=== PATIENT | male | born 1990 | race Caucasian/White ===

== ENCOUNTER 2016-11-27 10:40 | Inpatient (IN) | payer BC ==
[2016-11-27] MEDS ORDERED: Metoclopramide 10 MG/2 ML SDV IVPUSH ONE (11:24)
[2016-11-27] MEDS ORDERED: cefOXitin 2 GM in Premix Bag 1 BAG IV ONE (11:24)
[2016-11-27] MEDS ORDERED: HYDROmorphone 0.5 MG/0.5 ML Syringe IVPUSH ONE (11:24)
--- NOTE | 2016-11-27 11:27 | EDM.PDOC ---
ED HPI GI/ABDOMINAL - General Chief Complaint: Abdominal Pain Stated Complaint: R SIDE PAIN/ABD PAIN Time Seen by Provider: 11/27/16 11:08 Source of Information: Reports: Patient History Limitations: Reports: No limitations - History of Present Illness INITIAL COMMENTS - FREE TEXT/NARRATIVE: 26-year-old male attends the ED at the request of his provider Conrad Carmen. Patient reports that she's been having diffuse periumbilical and lower abdominal discomfort for the better part of 2 days. Associated loose stools one to 3 times per day since November 24. Gradually increasing pain localizing more to the right lower quadrant in the last 24 hours. No nausea or vomiting. He does to keep down fluids but he has no appetite for solids. States it "hurt [place] way [place]. He is aware that is difficult to stand fully erect. Hurts to cough. [place] chilled last evening. No noted fever. No previous abdominal surgery. Symptom Onset Date: 11/24/16 (About diffuse lower abdominal pain some loose stools Friday evening.) Symptom Onset Time: 19:00 Timing/Duration: Reports: Day(s):, Gradual onset Location: RLQ Quality: Reports: ache, fullness, throbbing Severity: moderate Improves with: Denies: defecating Worsens with: Reports: sitting up, other. Denies: defecating Context: Denies: sick contact ("Hurt [place] way here [place] beach.), bad/ questionable food, out of country travel, recent surgery, recent trauma, lifting , activity/exercise, other Associated Symptoms: Reports: diarrhea (Loose stools 1-3 semi-formed stools per day without blood since onset of illness.), fever/chills, loss of appetite (Had some chills last night. Note note identified fever for sure.), malaise. Denies : denies other symptoms, bloody stools, nausea/vomiting, other Treatments BROOMMAKER: Reports: Other (see below) - Related Data Allergies/ADRs: Allergies Allergy/AdvReac Type Severity Reaction Status Date / Time No Known Allergies Allergy Verified 11/27/16 10:56 Home Meds: Home Meds . [No Known Home Meds] 11/27/16 [History] Past Medical History - Past Health History Medical/Surgical History: Denies Medical/Surgical History Musculoskeletal History: Reports: Other (see below) (Closed fracture right wrist as a youngster requiring casting.) Social & Family History - Tobacco Use Smoking Status *Q: Never Smoker - Caffeine Use Caffeine Use: Reports: None - Recreational Drug Use Recreational Drug Use: No - Living Situation & Occupation Living situation: Reports: Occupation: employed ED ROS GENERAL - Review of Systems Review Of Systems: See Below Constitutional: Reports: no symptoms Respiratory: Reports: No Symptoms Endocrine: Reports: no symptoms GI/Abdominal: Reports: No symptoms : Reports: no symptoms Musculoskeletal: Reports: no symptoms Skin: Reports: no symptoms Neurological: Reports: No Symptoms Hematologic/Lymphatic: Reports: no symptoms Immunologic: Reports: no symptoms ED EXAM, GI/ABD - Physical Exam Exam: See Below Exam Limited By: No limitations General Appearance: alert, WD/WN, no apparent distress Eyes: bilateral: normal appearance (No jaundice) Ears: normal TMs Throat/Mouth: Normal inspection, Normal lips (Tongue is quite dry and coated.), Normal oropharynx, Other Head: atraumatic, normocephalic Neck: normal inspection, supple, non-tender, full range of motion. No: lymphadenopathy (L), lymphadenopathy (R) Respiratory/Chest: no respiratory distress, lungs clear, normal breath sounds, no accessory muscle use Cardiovascular: regular rate, rhythm, no edema (Resting tachycardia at 110 per minute), no gallop, no murmur, no rub, tachycardia GI/Abdominal: normal bowel sounds, soft, tenderness (Tenderness is localized to McBurney's point. He is very slight guarding in this area and no true rebound tenderness.), guarding, McBurney's sign. No: distention, psoas sign, obturator sign, Rovsing's sign (Negative off sign obturator sign and psoas sign.) (Male) Exam: No hernia (Mild right lower quadrant) Extremities: normal inspection, normal range of motion, non-tender, no pedal edema, normal capillary refill Neurological: alert, oriented, CN II-XII intact, normal cognition Psychiatric: normal affect (walks quite slowly.), normal mood Skin Exam: Warm, Dry, Intact, Normal color, No rash Course - Vital Signs Last Recorded V/S: Last Vital Signs Temp 37.1 C 11/27/16 17:40 Pulse 109 H 11/27/16 18:08 Resp 16 11/27/16 17:40 BP 134/74 11/27/16 18:08 Pulse Ox 94 L 11/27/16 18:08 - Orders/Labs/Meds Orders: Active Orders 24 hr Category Date Time Status Admission Status [Patient Status] [ADT] Routine ADT 11/27/16 13:47 Active Patient to Empty Bladder [RC] ASDIRECTED Care 11/27/16 13:56 Active Schedule Procedure [COMM] Stat Oth 11/27/16 14:14 Ordered Resuscitation Status Routine Resus Stat 11/27/16 13:56 Ordered Medication Orders Hydromorphone HCl (Dilaudid) 0.5 mg IVPUSH Q1H PRN PRN Reason: Pain (severe 7-10) Lactated Ringer's (Ringers, Lactated) 1,000 mls @ 125 mls/hr IV ASDIRECTED GABBY Cefoxitin Sodium 2 gm/ Premix 50 mls @ 100 mls/hr IV Q6H GABBY Ondansetron HCl (Zofran) 4 mg IVPUSH Q6H PRN PRN Reason: Nausea/Vomiting Oxycodone/Acetaminophen (Percocet 325-5 Mg) 2 tab PO Q4H PRN PRN Reason: Pain (moderate 4-6) Meds: Medications Generic Name Dose Route Start Last Admin Trade Name Freq PRN Reason Stop Dose Admin Hydromorphone HCl 0.5 mg 11/27/16 15:55 Dilaudid IVPUSH Q1H PRN Pain (severe 7-10) Lactated Ringer's 1,000 mls @ 125 mls/hr 11/27/16 16:00 Ringers, Lactated IV ASDIRECTED GABBY Cefoxitin Sodium 2 gm/ Premix 50 mls @ 100 mls/hr 11/27/16 18:00 IV Q6H GABBY Ondansetron HCl 4 mg 11/27/16 15:55 Zofran IVPUSH Q6H PRN Nausea/Vomiting Oxycodone/Acetaminophen 2 tab 11/27/16 15:55 Percocet 325-5 Mg PO Q4H PRN Pain (moderate 4-6) Discontinued Medications Generic Name Dose Route Start Last Admin Trade Name Freq PRN Reason Stop Dose Admin Bupivacaine HCl/Epinephrine Bitart Confirm 11/27/16 13:56 11/27/16 14:48 Marcaine 0.5%/Epinephrine 1:200,000 Administered 11/27/16 13:57 50 ml Dose Administration 50 ml .ROUTE .STK-MED ONE Diatrizoate Meglum/Diatrizoate Sod 120 ml 11/27/16 11:55 11/27/16 13:00 Gastrografin 37% PO 11/27/16 11:56 90 ml ONETIME ONE Administration Fentanyl Confirm 11/27/16 14:15 Sublimaze Administered 11/27/16 14:16 Dose 250 mcg .ROUTE .STK-MED ONE Fentanyl Confirm 11/27/16 15:18 Sublimaze Administered 11/27/16 15:19 Dose 250 mcg .ROUTE .STK-MED ONE Fentanyl 50 mcg 11/27/16 16:12 Sublimaze IVPUSH 11/27/16 18:00 Q5M PRN PAIN Hydromorphone HCl 0.5 mg 11/27/16 11:24 11/27/16 14:25 Dilaudid IVPUSH 11/27/16 11:25 Not Given ONETIME ONE Hydromorphone HCl 0.5 mg 11/27/16 16:12 11/27/16 17:00 Dilaudid IVPUSH 11/27/16 16:28 0.5 mg Q15M PRN Administration Pain Dextrose/Sodium Chloride 1,000 mls @ 999 mls/hr 11/27/16 11:30 11/27/16 11:41 Dextrose 5%-Normal Saline IV 999 mls/hr ASDIRECTED GABBY Administration Cefoxitin Sodium 2 gm/ Premix 50 mls @ 100 mls/hr 11/27/16 11:24 11/27/16 13: 00 IV 11/27/16 11:53 100 mls/hr ONETIME ONE Administration Metronidazole 500 mg/ Premix 100 mls @ 100 mls/hr 11/27/16 13:50 IV 11/27/16 14:49 ONETIME ONE Lidocaine HCl Confirm 11/27/16 14:15 Xylocaine-Mpf 1% Administered 11/27/16 14:16 Dose 4 mls @ as directed .ROUTE .STK-MED ONE Lactated Ringer's Confirm 11/27/16 15:22 Ringers, Lactated Administered 11/27/16 15:23 Dose 1,000 mls @ as directed .ROUTE .STK-MED ONE Lactated Ringer's Confirm 11/27/16 16:01 Ringers, Lactated Administered 11/27/16 16:02 Dose 1,000 mls @ as directed .ROUTE .STK-MED ONE Iopamidol 150 ml 11/27/16 11:55 11/27/16 13:00 Isovue-300 (61%) IVPUSH 11/27/16 11:56 125 ml ONETIME ONE Administration Lidocaine/Epinephrine Confirm 11/27/16 13:56 11/27/16 14:48 Xylocaine 1% With Epinephrine 1:100,000 Administered 11/27/16 13:57 20 ml Dose Administration 20 ml .ROUTE .STK-MED ONE Metoclopramide HCl 10 mg 11/27/16 11:24 11/27/16 14:25 Reglan IVPUSH 11/27/16 11:25 Not Given ONETIME ONE Midazolam HCl Confirm 11/27/16 14:14 Versed 1 Mg/Ml Administered 11/27/16 14:15 Dose 2 mg .ROUTE .STK-MED ONE Ondansetron HCl Confirm 11/27/16 14:14 Zofran Administered 11/27/16 14:15 Dose 4 mg .ROUTE .STK-MED ONE Propofol Confirm 11/27/16 14:14 Diprivan 20 Ml Administered 11/27/16 14:15 Dose 200 mg .ROUTE .STK-MED ONE Rocuronium [place] Confirm 11/27/16 14:14 Zemuron Administered 11/27/16 14:15 Dose 50 mg .ROUTE .STK-MED ONE Sodium Chloride 10 ml 11/27/16 11:55 11/27/16 13:00 Saline Flush FLUSH 10 ml ONETIME PRN Administration IV FLUSH - Radiology Interpretation Free Text/Narrative:: 26-year-old male presents the ED with loose stools and some mild periumbilical pain since November 24 Over the last 2 days he's had gradually increasing in the right lower quadrant of the abdomen. By history has mild peritonitis with every bump in the road hurting [place]. He is he'll be seen in the clinic by Conrad Carmen. Lab work ordered reveals a white count of 18.39 with a left shift of 78% neutrophils. No bands reported. Hemoglobin is 13.4 hematocrit 41.1 platelets normal at 205,000. Sodium 136 potassium slightly low at 3.4 anion gap is 12.4 BUN is 12 creatinine is 1.2. Glucose was 122. Bilirubin is mildly elevated at 1.4 AST is 15 ALT of 28 C-reactive protein is markedly elevated at 21.8. Urine showed 3+ protein and 1+ ketones. 2+ bilirubinemia. Leukocyte Estrace negative. Clinically he appears to have appendicitis. Plan IV D5 normal saline at open. Was given Dilaudid 0.5 mg IV and Reglan 10 mg IV for nausea and pain relief. Will receive oral contrast for CT of the abdomen and pelvis with oral and IV contrast in about an hour. - Re-Assessments/Exams Free Text/Narrative Re-Assessment/Exam: 11/27/16 13:41 CT scan of the abdomen is been completed. It does show marked periappendiceal infiltrate without the appendix being well seen within the infiltrate. This is highly suspicious for ruptured appendix. The remainder of the solid organs ,liver, pancreas and spleen and both kidneys and bladder appear normal. 11/27/16 13:42 case discussed with on-call surgeon Dr. Wu and he will attend the patient in the emergency room. I will add Flagyl 500 mg IV to his treatment plan as well as I strongly suspect the appendix has ruptured by the looks of the CT scan. Departure - Departure Time of Disposition: 14:30 Disposition: DC/Tfer to Critical Access 66 Condition: serious Clinical Impression: Appendicitis Qualifiers: Appendicitis type: acute appendicitis Acute appendicitis type: with localized peritonitis Qualified Code(s): K35.3 - Acute appendicitis with localized peritonitis - My Orders Last 24 Hours: My Active Orders 11/27/16 13:47 Admission Status [Patient Status] [ADT] Routine - Assessment/Plan Last 24 Hours: My Active Orders 11/27/16 13:47 Admission Status [Patient Status] [ADT] Routine
[2016-11-27] MEDS ORDERED: Dextrose 5%-0.9% NaCl 1,000 ML IV SCH (11:30)
[2016-11-27] MEDS ORDERED: Iopamidol 612 MG/ML 150 ML Bottle IVPUSH ONE (11:55)
[2016-11-27] MEDS ORDERED: Sodium Chloride 0.9% 10 ML Syringe FLUSH PRN (11:55)
[2016-11-27] MEDS ORDERED: Diatrizoate Meglumine/Diatrizoate Sodium 37% 120 ML Bottle PO ONE (11:55)
--- NOTE | 2016-11-27 13:27 | CT ---
CT abdomen and pelvis Technique: Multiple axial sections were obtained from above the dome of the diaphragm inferiorly through the pubic symphysis. Intravenous and oral contrast was utilized. Delayed images also were obtained through the bladder. Findings: Air-filled appendix is seen with significant surrounding inflammatory change. Findings are compatible with ruptured appendicitis. Nothing identified at this time to indicate abscess. Small amount of extraluminal air is noted. Visualized lung bases are clear. Liver shows no focal parenchymal abnormality. Spleen appears within normal limits. Incidental accessory splenic tissue is noted anterior to the spleen. Pancreas is within normal limits. Kidneys show contrast-enhancement without hydronephrosis or mass. Aorta shows no aneurysmal dilatation. Slightly prominent lymph nodes are noted within the right lower abdomen believed to be reactive from the patient's appendicitis. No pelvic mass or adenopathy is seen. Delayed images shows contrast within the distal ureters and within the bladder. Bone window settings were reviewed which appear within normal limits for the patient's age. Impression: 1. Findings compatible with ruptured appendicitis as described above. Small amount of extraluminal air is seen. Slightly prominent lymph nodes within the right lower abdomen felt to be reactive from the appendicitis. 2. Other incidental findings. Diagnostic code #5
[2016-11-27] MEDS ORDERED: metroNIDAZOLE/Normal Saline 500 MG in Premix Bag 1 BAG IV ONE (13:50)
[2016-11-27] MEDS ORDERED: Lidocaine 1% with EPINEPHrine 1:100,000 20 ML MDV ONE (13:56)
[2016-11-27] MEDS ORDERED: Bupivacaine 0.5%/EPINEPHrine 1:200,000 50 ML MDV ONE (13:56)
--- NOTE | 2016-11-27 14:03 | PCM.HP ---
H&P History of Present Illness - General Date of Service: 11/27/16 Admit Problem/Dx: Admission Diagnosis/Problem Admission Diagnosis/Problem Abdominal pain History Limitations: Reports: No limitations - History of Present Illness Initial Comments - Free Text/Narative: 26 yo old male was in his usual state of excellent health until Friday when he experienced gas pains. The gas, became tenderness in his epigastrium and periumbilical region. He experienced more pain over the next several days that wasn't improving and ultimately localized in his suprapubic region and right lower abdominal quadrant. His appetite has been suppressed. He had mild nausea. He was seen by the clinic provider, who ordered white count, which was elevated. A CT scan was performed by the ED staff this afternoon and had features consistent with acute appendicitis. I was asked see him in surgical consultation. Lower Abdomen Pain Score (Numeric/FACES): 7 - Related Data Allergies/Adverse Reactions: Allergies Allergy/AdvReac Type Severity Reaction Status Date / Time No Known Allergies Allergy Verified 11/27/16 10:56 Home Medications: Home Meds . [No Known Home Meds] 11/27/16 [History] Past Medical History - Past Health History Medical/Surgical History: Denies Medical/Surgical History Musculoskeletal History: Reports: Other (see below) (Closed fracture right wrist as a youngster requiring casting.) Social & Family History - Tobacco Use Smoking Status *Q: Never Smoker - Caffeine Use Caffeine Use: Reports: None - Recreational Drug Use Recreational Drug Use: No - Living Situation & Occupation Living situation: Reports: Occupation: employed H&P Review of Systems - Review of Systems: Review Of Systems: See Below Gastrointestinal: Reports: Abdominal pain, Anorexia Exam - Exam Exam: See Below - Vital Signs Vital Signs: Last Vital Signs Temp 37.5 C 11/27/16 10:52 Pulse 108 H 11/27/16 10:52 Resp 18 11/27/16 10:52 BP 146/90 H 11/27/16 10:52 Pulse Ox 93 L 11/27/16 10:52 Weight: 127.006 kg - Exam General: alert, oriented, cooperative HEENT: EOMI, Hearing intact Neck: supple Lungs: Clear to auscultation, Normal respiratory effort Cardiovascular: regular rate, regular rhythm, normal S1, normal S2 Abdomen: normal bowel sounds, soft, McBurney's sign (Male) Exam: Normal inspection Rectal (Males) Exam: Deferred Back Exam: full range of motion Skin: warm, intact Neuro Extensive - Mental Status: alert, oriented x3 Psychiatric: alert, normal affect, normal mood *Q Meaningful Use (ADM) - VTE *Q VTE Criteria *Q: - Stroke *Q Stroke Criteria *Q: - AMI *Q AMI Criteria *Q: - Problem List (1) Appendicitis SNOMED Code(s): 63736976 ICD Code: K37 - UNSPECIFIED APPENDICITIS Status: Acute Priority: High Current Visit: Yes Qualifiers: Appendicitis type: acute appendicitis Acute appendicitis type: with localized peritonitis Qualified Code(s): K35.3 - Acute appendicitis with localized peritonitis Problem List Initiated/Reviewed/Updated: Yes Orders Last 24hrs: Active Orders 24 hr Category Date Time Status Admission Status [Patient Status] [ADT] Routine ADT 11/27/16 13:47 Active Communication Order [RC] STAT Care 11/27/16 13:56 Ordered Patient to Empty Bladder [RC] ASDIRECTED Care 11/27/16 13:56 Ordered Verify Patient Consent Obtain [RC] ASDIRECTED Care 11/27/16 13:56 Ordered Nothing Per Oral Diet [DIET] Diet 11/27/16 Dinner Ordered Dextrose 5%-0.9% NaCl [Dextrose 5%-Normal Saline] 1,000 Med 11/27/16 11:30 Active ml IV ASDIRECTED Sodium Chloride 0.9% [Saline Flush] Med 11/27/16 11:55 Active 10 ml FLUSH ONETIME PRN metroNIDAZOLE/Normal Saline [Flagyl 500 MG in NS 100 ML Med 11/27/16 13:50 Active ] 500 mg Premix Bag 1 bag IV ONETIME Resuscitation Status Routine Resus Stat 11/27/16 13:56 Ordered Medication Orders Dextrose/Sodium Chloride (Dextrose 5%-Normal Saline) 1,000 mls @ 999 mls/hr IV ASDIRECTED GABBY Last Admin: 11/27/16 11:41 Dose: 999 mls/hr Metronidazole 500 mg/ Premix 100 mls @ 100 mls/hr IV ONETIME ONE Stop: 11/27/16 14:49 Sodium Chloride (Saline Flush) 10 ml FLUSH ONETIME PRN PRN Reason: IV FLUSH Last Admin: 11/27/16 13:00 Dose: 10 ml Assessment/Plan Comment:: imp: Acute appendicitis plan: Laparoscopic, possible open appendectomy. The benefits, risks of the procedure were explained to the patient as well as the alternatives. He wants to proceed as soon as possible.
[2016-11-27] MEDS ORDERED: Rocuronium 50 MG/5 ML Vial ONE (14:14)
[2016-11-27] MEDS ORDERED: Ondansetron 4 MG/2 ML SDV ONE (14:14)
[2016-11-27] MEDS ORDERED: Midazolam 1 MG/ML 2 ML SDV ONE (14:14)
[2016-11-27] MEDS ORDERED: Propofol 200 MG/20 ML SDV ONE (14:14)
[2016-11-27] MEDS ORDERED: fentaNYL 250 MCG/5 ML SDV ONE ×2 (14:15→15:18)
[2016-11-27] MEDS ORDERED: Lidocaine 1% 4 ML ONE (14:15)
--- NOTE | 2016-11-27 15:02 | PCM.PREANE ---
Preanesthetic Assessment - Anesthesia/Transfusion/Family Hx Anesthesia History: Prior Anesthesia Without Reaction Family History of Anesthesia Reaction: No - Review of Systems General: Fatigue, Malaise Pulmonary: No Symptoms Cardiovascular: No Symptoms Gastrointestinal: Abdominal pain, Diarrhea Neurological: No Symptoms Other: Reports: None - Physical Assessment NPO Status Date: 11/27/16 NPO Status Time: 12:30 Pulse: 108 O2 Sat by Pulse Oximetry: 98 Respiratory Rate: 16 Blood Pressure: 146/90 Temperature: 37.5 C Vital Signs: Last Vital Signs Temp 37.5 C 11/27/16 10:52 Pulse 78 11/27/16 14:37 Resp 16 11/27/16 14:37 BP 128/82 11/27/16 14:37 Pulse Ox 98 11/27/16 14:37 Height: 1.93 m Weight: 127.006 kg ASA Class: 1E Mental Status: Alert & Oriented x3 Airway Class: Mallampati = 1 Dentition: Reports: Normal Dentition Thyro-Mental Finger Breadths: 3 Mouth Opening Finger Breadths: 3 ROM/Head Extension: Full Lungs: Clear to auscultation, Normal respiratory effort Cardiovascular: Regular Rate, Regular Rhythm, No Murmurs - Allergies Allergies/Adverse Reactions: Allergies Allergy/AdvReac Type Severity Reaction Status Date / Time No Known Allergies Allergy Verified 11/27/16 10:56 - Anesthesia Plan Pre-Op Medication Ordered: None - Acknowledgements Anesthesia Type Planned: General Anesthesia Pt an Appropriate Candidate for the Planned Anesthesia: Yes Alternatives and Risks of Anesthesia Discussed w Pt/Guardian: Yes Pt/Guardian Understands and Agrees with Anesthesia Plan: Yes PreAnesthesia Questionnaire - Past Health History Medical/Surgical History: Denies Medical/Surgical History Musculoskeletal History: Reports: Other (see below) (Closed fracture right wrist as a youngster requiring casting.) - SUBSTANCE USE Smoking Status *Q: Never Smoker Tobacco Use Within Last Twelve Months: No Other Tobacco Use Within Last Twelve Months: 0 Second Hand Smoke Exposure: No Days Per Week of Alcohol Use: 0 Number of Drinks Per Day: 0 Total Drinks Per Week: 0 Recreational Drug Use History: No - HOME MEDS Home Medications: Home Meds . [No Known Home Meds] 11/27/16 [History] - CURRENT (IN HOUSE) MEDS Current Meds: Current Medications Dextrose/Sodium Chloride (Dextrose 5%-Normal Saline) 1,000 mls @ 999 mls/hr IV ASDIRECTED [facility] Last Admin: 11/27/16 11:41 Dose: 999 mls/hr Sodium Chloride (Saline Flush) 10 ml FLUSH ONETIME PRN PRN Reason: IV FLUSH Last Admin: 11/27/16 13:00 Dose: 10 ml Discontinued Medications Bupivacaine HCl/Epinephrine Bitart (Marcaine 0.5%/Epinephrine 1:200,000) Confirm Administered Dose 50 ml .ROUTE .STK-MED ONE Stop: 11/27/16 13:57 Diatrizoate Meglum/Diatrizoate Sod (Gastrografin 37%) 120 ml PO ONETIME ONE Stop: 11/27/16 11:56 Last Admin: 11/27/16 13:00 Dose: 90 ml Fentanyl (Sublimaze) Confirm Administered Dose 250 mcg .ROUTE .STK-MED ONE Stop: 11/27/16 14:16 Hydromorphone HCl (Dilaudid) 0.5 mg IVPUSH ONETIME ONE Stop: 11/27/16 11:25 Last Admin: 11/27/16 14:25 Dose: Not Given Cefoxitin Sodium 2 gm/ Premix 50 mls @ 100 mls/hr IV ONETIME ONE Stop: 11/27/16 11:53 Last Admin: 11/27/16 13:00 Dose: 100 mls/hr Metronidazole 500 mg/ Premix 100 mls @ 100 mls/hr IV ONETIME ONE Stop: 11/27/16 14:49 Lidocaine HCl (Xylocaine-Mpf 1%) Confirm Administered Dose 4 mls @ as directed .ROUTE .STK-MED ONE Stop: 11/27/16 14:16 Iopamidol (Isovue-300 (61%)) 150 ml IVPUSH ONETIME ONE Stop: 11/27/16 11:56 Last Admin: 11/27/16 13:00 Dose: 125 ml Lidocaine/Epinephrine (Xylocaine 1% With Epinephrine 1:100,000) Confirm Administered Dose 20 ml .ROUTE .STK-MED ONE Stop: 11/27/16 13:57 Metoclopramide HCl (Reglan) 10 mg IVPUSH ONETIME ONE Stop: 11/27/16 11:25 Last Admin: 11/27/16 14:25 Dose: Not Given Midazolam HCl (Versed 1 Mg/Ml) Confirm Administered Dose 2 mg .ROUTE .STK-MED ONE Stop: 11/27/16 14:15 Ondansetron HCl (Zofran) Confirm Administered Dose 4 mg .ROUTE .STK-MED ONE Stop: 11/27/16 14:15 Propofol (Diprivan 20 Ml) Confirm Administered Dose 200 mg .ROUTE .STK-MED ONE Stop: 11/27/16 14:15 Rocuronium [place] (Zemuron) Confirm Administered Dose 50 mg .ROUTE .STK-MED ONE Stop: 11/27/16 14:15 Preanesthetic Assessment - REVIEW OF SYSTEMS Constitutional: Reports: no symptoms DIRECTOR OF INSTRUCTION: Reports: no symptoms Respiratory: Reports: no symptoms Cardiovascular: Reports: no symptoms Other: Reports: None - PHYSICAL ASSESSMENT O2 Sat by Pulse Oximetry: 98 RR: 16 Vital Signs: Last Vital Signs Temp 37.5 C 11/27/16 10:52 Pulse 78 11/27/16 14:37 Resp 16 11/27/16 14:37 BP 128/82 11/27/16 14:37 Pulse Ox 98 11/27/16 14:37 Height: 1.93 m Weight: 127.006 kg NPO Status Date: 11/27/16 NPO Status Time: 12:30 - ALLERGIES Allergies/Adverse Reactions: Allergies Allergy/AdvReac Type Severity Reaction Status Date / Time No Known Allergies Allergy Verified 11/27/16 10:56
[2016-11-27] MEDS ORDERED: Lactated Ringers 1,000 ML ONE ×2 (15:22→16:01)
[2016-11-27] MEDS ORDERED: HYDROmorphone 0.5 MG/0.5 ML Syringe IVPUSH PRN ×2 (15:55→16:12)
[2016-11-27] MEDS ORDERED: Ondansetron 4 MG/2 ML SDV IVPUSH PRN (15:55)
--- NOTE | 2016-11-27 16:00 | PCM.OPNOTE ---
- General Post-Op/Procedure Note Date of Surgery/Procedure: 11/27/16 Operative Procedure(s): laparoscopic appendectomy Findings: gangrenous appendix with a fecalith at the base, and local fecal spillag; concomitant local peritonitis, with a dense inflammatory reaction from the surrounding tissues Pre Op Diagnosis: acute perforated appendicitis Post-Op Diagnosis: acute gangrenous perforation with focal fecal peritonitis Anesthesia Technique: General ET tube, Local Primary Surgeon: Andre Wu Pathology: appendix EBL in mLs: 5 Complications: None Condition: Good Free Text/Narrative:: After adequate general endotracheal tube anesthesia was obtained the patient was positioned in supine fashion for the procedure. His abdomen was clipper prepped, then DuraPrepped and draped sterilely for a laparoscopic appendectomy. A supraumbilical incision was made with a 15 blade. After local analgesia was given. The incision was deepened to the midline fascia, which was opened sharply. A 12 mm camera port was inserted under direct vision, followed by CO2 pneumoperitoneum. A 5 mm working port was placed in the suprapubic region and one on left lower quadrant. Exploration revealed dense inflammatory adherence of the omentum, sigmoid colonic fat, to the appendix wall and sealed off what was to be a local fecal perforation. I then used the sucker dissection to tease away the surrounding structures away from the appendix, which was fully gangrenous throughout its length. A fecalith fell from the necrotic portion of the base spilling 1 CC of liquid feces and mucous. This was quickly controlled. There was no deacon pus in the region. I mobilized the cecum, along the white line. I was then able to identify the base of the appendix. A window was made with the scissors in the mesoappendix and then I fired the linear stapler across the base and 2 loads across the appendiceal mesentery. The specimen was placed in a bag along with a fecalith and removed through the umbilicus. Iirrigated out the right lower quadrant with 2 L of saline. He abdomen was decannulated under direct vision, and I closed the umbilical site with an O vicryl. The subcutaneous tissues and skin were closed with Vicryl as well. Steri -Strips and gauze used for the dressing. There were no procedural complications
[2016-11-27] MEDS ORDERED: fentaNYL 100 MCG/2 ML SDV IVPUSH PRN (16:12)
--- NOTE | 2016-11-27 16:14 | PCM.POSTAN ---
POST ANESTHESIA ASSESSMENT - MENTAL STATUS Mental Status: somnolent - VITAL SIGNS Pulse Rate: 107 SaO2: 100 Resp Rate: 14 Blood Pressure: 123/80 Temperature: 99.9 C - RESPIRATORY Respiratory Status: respiratory rate WNL, airway patent, O2 saturation stable, supplemental oxygen - CARDIOVASCULAR CV Status: pulse rate WNL, blood pressure stable - GASTROINTESTINAL GI Status: no symptoms - PAIN Pain Score: 0 - POST OP HYDRATION Hydration Status: adequate & stable - OBSERVATIONS Free Text/Narrative:: no anesthesia complications noted
[2016-11-27] MEDS: cefOXitin 2 GM in Premix Bag 1 BAG IV SCH (18:22)
[2016-11-27] MEDS: Acetaminophen/oxyCODONE 325-5 MG Tab PO PRN (20:05)
[2016-11-27] MEDS: Lactated Ringers 1,000 ML IV SCH (20:06)
[2016-11-28] MEDS: cefOXitin 2 GM in Premix Bag 1 BAG IV SCH ×5 (00:22→23:40)
[2016-11-28] MEDS: Lactated Ringers 1,000 ML IV SCH ×3 (04:12→20:07)
[2016-11-28] MEDS: Acetaminophen/oxyCODONE 325-5 MG Tab PO PRN ×2 (06:07→15:37)
--- NOTE | 2016-11-28 07:41 | PCM.SURGPN ---
- General Info Date of Service: 11/28/16 POD#: 1 Functional Status: Reports: pain controlled (but still has lower abdominal and left lower quadrant abdominal pain), tolerating diet (began to take in liquids this morning without difficulty), ambulating, urinating - Review of Systems Gastrointestinal: Reports: Abdominal pain, Decreased appetite - Patient Data Vitals - most recent: Last Vital Signs Temp 36.5 C 11/28/16 03:50 Pulse 118 H 11/28/16 03:50 Resp 20 11/28/16 03:50 BP 124/65 11/28/16 03:50 Pulse Ox 90 L 11/28/16 03:50 Weight - most recent: 125.6 kg I&O - last 24 hours: Intake & Output 11/27/16 11/28/16 11/28/16 22:59 06:59 14:59 Intake Total 500 1979 Output Total 600 Balance 500 1379 Med Orders - Current: Current Medications Hydromorphone HCl (Dilaudid) 0.5 mg IVPUSH Q1H PRN PRN Reason: Pain (severe 7-10) Last Admin: 11/27/16 18:24 Dose: 0.5 mg Lactated Ringer's (Ringers, Lactated) 1,000 mls @ 125 mls/hr IV ASDIRECTED [facility] Last Admin: 11/28/16 04:12 Dose: 125 mls/hr Cefoxitin Sodium 2 gm/ Premix 50 mls @ 100 mls/hr IV Q6H [facility] Last Admin: 11/28/16 05:56 Dose: 100 mls/hr Ondansetron HCl (Zofran) 4 mg IVPUSH Q6H PRN PRN Reason: Nausea/Vomiting Oxycodone/Acetaminophen (Percocet 325-5 Mg) 2 tab PO Q4H PRN PRN Reason: Pain (moderate 4-6) Last Admin: 11/28/16 06:07 Dose: 2 tab Discontinued Medications Bupivacaine HCl/Epinephrine Bitart (Marcaine 0.5%/Epinephrine 1:200,000) Confirm Administered Dose 50 ml .ROUTE .STK-MED ONE Stop: 11/27/16 13:57 Last Admin: 11/27/16 14:48 Dose: 10 ml Diatrizoate Meglum/Diatrizoate Sod (Gastrografin 37%) 120 ml PO ONETIME ONE Stop: 11/27/16 11:56 Last Admin: 11/27/16 13:00 Dose: 90 ml Fentanyl (Sublimaze) Confirm Administered Dose 250 mcg .ROUTE .STK-MED ONE Stop: 11/27/16 14:16 Fentanyl (Sublimaze) Confirm Administered Dose 250 mcg .ROUTE .STK-MED ONE Stop: 11/27/16 15:19 Fentanyl (Sublimaze) 50 mcg IVPUSH Q5M PRN PRN Reason: PAIN Stop: 11/27/16 18:00 Hydromorphone HCl (Dilaudid) 0.5 mg IVPUSH ONETIME ONE Stop: 11/27/16 11:25 Last Admin: 11/27/16 14:25 Dose: Not Given Hydromorphone HCl (Dilaudid) 0.5 mg IVPUSH Q15M PRN PRN Reason: Pain Stop: 11/27/16 16:28 Last Admin: 11/27/16 17:00 Dose: 0.5 mg Dextrose/Sodium Chloride (Dextrose 5%-Normal Saline) 1,000 mls @ 999 mls/hr IV ASDIRECTED [facility] Last Admin: 11/27/16 11:41 Dose: 999 mls/hr Cefoxitin Sodium 2 gm/ Premix 50 mls @ 100 mls/hr IV ONETIME ONE Stop: 11/27/16 11:53 Last Admin: 11/27/16 13:00 Dose: 100 mls/hr Metronidazole 500 mg/ Premix 100 mls @ 100 mls/hr IV ONETIME ONE Stop: 11/27/16 14:49 Last Admin: 11/27/16 19:11 Dose: Not Given Lidocaine HCl (Xylocaine-Mpf 1%) Confirm Administered Dose 4 mls @ as directed .ROUTE .STK-MED ONE Stop: 11/27/16 14:16 Lactated Ringer's (Ringers, Lactated) Confirm Administered Dose 1,000 mls @ as directed .ROUTE .STK-MED ONE Stop: 11/27/16 15:23 Lactated Ringer's (Ringers, Lactated) Confirm Administered Dose 1,000 mls @ as directed .ROUTE .STK-MED ONE Stop: 11/27/16 16:02 Iopamidol (Isovue-300 (61%)) 150 ml IVPUSH ONETIME ONE Stop: 11/27/16 11:56 Last Admin: 11/27/16 13:00 Dose: 125 ml Lidocaine/Epinephrine (Xylocaine 1% With Epinephrine 1:100,000) Confirm Administered Dose 20 ml .ROUTE .STK-MED ONE Stop: 11/27/16 13:57 Last Admin: 11/27/16 14:48 Dose: 10 ml Metoclopramide HCl (Reglan) 10 mg IVPUSH ONETIME ONE Stop: 11/27/16 11:25 Last Admin: 11/27/16 14:25 Dose: Not Given Midazolam HCl (Versed 1 Mg/Ml) Confirm Administered Dose 2 mg .ROUTE .STK-MED ONE Stop: 11/27/16 14:15 Ondansetron HCl (Zofran) Confirm Administered Dose 4 mg .ROUTE .STK-MED ONE Stop: 11/27/16 14:15 Propofol (Diprivan 20 Ml) Confirm Administered Dose 200 mg .ROUTE .STK-MED ONE Stop: 11/27/16 14:15 Rocuronium [place] (Zemuron) Confirm Administered Dose 50 mg .ROUTE .STK-MED ONE Stop: 11/27/16 14:15 Sodium Chloride (Saline Flush) 10 ml FLUSH ONETIME PRN PRN Reason: IV FLUSH Last Admin: 11/27/16 13:00 Dose: 10 ml - Exam Wound/Incisions: dressing dry and intact Abdomen: distension (mild to moderate) - Problem List & Annotations (1) Appendicitis SNOMED Code(s): 94129254 Code(s): K37 - UNSPECIFIED APPENDICITIS Status: Acute Priority: High Current Visit: Yes Qualifiers: Appendicitis type: acute appendicitis Acute appendicitis type: with localized peritonitis Qualified Code(s): K35.3 - Acute appendicitis with localized peritonitis - Problem List Review Problem List Initiated/Reviewed/Updated: Yes - My Orders Last 24 Hours: Active Orders 24 hr Category Date Time Status Antiembolic Devices [RC] QSHIFT Care 11/27/16 23:23 Active Notify Provider [RC] ASDIRECTED Care 11/27/16 16:12 Active Full Liquid Diet [DIET] Diet 11/28/16 Lunch Ordered Sequential Compression Device [OM.PC] Routine Oth 11/27/16 23:23 Ordered Medication Orders Hydromorphone HCl (Dilaudid) 0.5 mg IVPUSH Q1H PRN PRN Reason: Pain (severe 7-10) Last Admin: 11/27/16 18:24 Dose: 0.5 mg Lactated Ringer's (Ringers, Lactated) 1,000 mls @ 125 mls/hr IV ASDIRECTED [facility] Last Admin: 11/28/16 04:12 Dose: 125 mls/hr Infusion: 11/28/16 04:06 Dose: 125 mls/hr Admin: 11/27/16 20:06 Dose: 125 mls/hr Cefoxitin Sodium 2 gm/ Premix 50 mls @ 100 mls/hr IV Q6H [facility] Last Admin: 11/28/16 05:56 Dose: 100 mls/hr Infusion: 11/28/16 00:52 Dose: 100 mls/hr Admin: 11/28/16 00:22 Dose: 100 mls/hr Infusion: 11/27/16 18:52 Dose: 100 mls/hr Admin: 11/27/16 18:22 Dose: 100 mls/hr Ondansetron HCl (Zofran) 4 mg IVPUSH Q6H PRN PRN Reason: Nausea/Vomiting Oxycodone/Acetaminophen (Percocet 325-5 Mg) 2 tab PO Q4H PRN PRN Reason: Pain (moderate 4-6) Last Admin: 11/28/16 06:07 Dose: 2 tab Admin: 11/27/16 20:05 Dose: 2 tab imp/plan: Expected postoperative clinical status at this point, given the severity of his infection. I will advance his diet to a full liquid diet. I will have physical therapy come by and assist him with ambulation.
[2016-11-29] MEDS: Lactated Ringers 1,000 ML IV SCH ×2 (04:08→12:01)
[2016-11-29] MEDS: cefOXitin 2 GM in Premix Bag 1 BAG IV SCH ×3 (05:58→17:08)
--- NOTE | 2016-11-29 07:35 | PCM.SURGPN ---
- General Info Date of Service: 11/29/16 POD#: 2 Functional Status: Reports: pain controlled, tolerating diet, ambulating, urinating - Review of Systems Gastrointestinal: Reports: Diarrhea - Patient Data Vitals - most recent: Last Vital Signs Temp 36.6 C 11/29/16 04:07 Pulse 94 11/29/16 04:07 Resp 18 11/29/16 04:07 BP 126/74 11/29/16 04:07 Pulse Ox 96 11/29/16 04:07 Weight - most recent: 128.185 kg I&O - last 24 hours: Intake & Output 11/28/16 11/29/16 11/29/16 22:59 06:59 14:59 Intake Total 3320 2817 Output Total 600 Balance 2720 2817 Lab Results last 24 hrs: Laboratory Results - last 24 hr 11/28/16 Range/Units 06:50 WBC 15.73 H (4.23-9.07) K/mm3 RBC 7.25 H (4.63-6.08) M/mm3 Hgb 13.2 L (13.7-17.5) gm/L Hct 40.3 (40.1-51.0) % MCV 55.6 L (79.0-92.2) fl MCH 18.2 L (25.7-32.2) pg MCHC 32.8 (32.2-35.5) g/dl RDW Std Deviation 33.9 L (35.1-43.9) fL Plt Count 313 (163-337) K/mm3 MPV 10.7 (9.4-12.3) fl Neut % (Auto) 79.3 H (34.0-67.9) % Lymph % (Auto) 7.1 L (21.8-53.1) % Sharp % (Auto) 13.2 H (5.3-12.2) % Eos % (Auto) 0 L (0.8-7.0) Baso % (Auto) 0.1 (0.1-1.2) % Neut # (Auto) 12.48 H (1.78-5.38) K/mm3 Lymph # (Auto) 1.12 L (1.32-3.57) K/mm3 Sharp # (Auto) 2.08 H (0.30-0.82) K/mm3 Eos # (Auto) 0.00 L (0.04-0.54) K/mm3 Baso # (Auto) 0.01 (0.01-0.08) K/mm3 Manual Slide Review Abnormal smear Med Orders - Current: Current Medications Hydromorphone HCl (Dilaudid) 0.5 mg IVPUSH Q1H PRN PRN Reason: Pain (severe 7-10) Last Admin: 11/27/16 18:24 Dose: 0.5 mg Lactated Ringer's (Ringers, Lactated) 1,000 mls @ 125 mls/hr IV ASDIRECTED [facility] Last Admin: 11/29/16 04:08 Dose: 125 mls/hr Cefoxitin Sodium 2 gm/ Premix 50 mls @ 100 mls/hr IV Q6H [facility] Last Admin: 11/29/16 05:58 Dose: 100 mls/hr Ondansetron HCl (Zofran) 4 mg IVPUSH Q6H PRN PRN Reason: Nausea/Vomiting Oxycodone/Acetaminophen (Percocet 325-5 Mg) 2 tab PO Q4H PRN PRN Reason: Pain (moderate 4-6) Last Admin: 11/28/16 15:37 Dose: 2 tab Discontinued Medications Bupivacaine HCl/Epinephrine Bitart (Marcaine 0.5%/Epinephrine 1:200,000) Confirm Administered Dose 50 ml .ROUTE .STK-MED ONE Stop: 11/27/16 13:57 Last Admin: 11/27/16 14:48 Dose: 10 ml Diatrizoate Meglum/Diatrizoate Sod (Gastrografin 37%) 120 ml PO ONETIME ONE Stop: 11/27/16 11:56 Last Admin: 11/27/16 13:00 Dose: 90 ml Fentanyl (Sublimaze) Confirm Administered Dose 250 mcg .ROUTE .STK-MED ONE Stop: 11/27/16 14:16 Fentanyl (Sublimaze) Confirm Administered Dose 250 mcg .ROUTE .STK-MED ONE Stop: 11/27/16 15:19 Fentanyl (Sublimaze) 50 mcg IVPUSH Q5M PRN PRN Reason: PAIN Stop: 11/27/16 18:00 Hydromorphone HCl (Dilaudid) 0.5 mg IVPUSH ONETIME ONE Stop: 11/27/16 11:25 Last Admin: 11/27/16 14:25 Dose: Not Given Hydromorphone HCl (Dilaudid) 0.5 mg IVPUSH Q15M PRN PRN Reason: Pain Stop: 11/27/16 16:28 Last Admin: 11/27/16 17:00 Dose: 0.5 mg Dextrose/Sodium Chloride (Dextrose 5%-Normal Saline) 1,000 mls @ 999 mls/hr IV ASDIRECTED [facility] Last Admin: 11/27/16 11:41 Dose: 999 mls/hr Cefoxitin Sodium 2 gm/ Premix 50 mls @ 100 mls/hr IV ONETIME ONE Stop: 11/27/16 11:53 Last Admin: 11/27/16 13:00 Dose: 100 mls/hr Metronidazole 500 mg/ Premix 100 mls @ 100 mls/hr IV ONETIME ONE Stop: 11/27/16 14:49 Last Admin: 11/27/16 19:11 Dose: Not Given Lidocaine HCl (Xylocaine-Mpf 1%) Confirm Administered Dose 4 mls @ as directed .ROUTE .STK-MED ONE Stop: 11/27/16 14:16 Lactated Ringer's (Ringers, Lactated) Confirm Administered Dose 1,000 mls @ as directed .ROUTE .STK-MED ONE Stop: 11/27/16 15:23 Lactated Ringer's (Ringers, Lactated) Confirm Administered Dose 1,000 mls @ as directed .ROUTE .STK-MED ONE Stop: 11/27/16 16:02 Iopamidol (Isovue-300 (61%)) 150 ml IVPUSH ONETIME ONE Stop: 11/27/16 11:56 Last Admin: 11/27/16 13:00 Dose: 125 ml Lidocaine/Epinephrine (Xylocaine 1% With Epinephrine 1:100,000) Confirm Administered Dose 20 ml .ROUTE .STK-MED ONE Stop: 11/27/16 13:57 Last Admin: 11/27/16 14:48 Dose: 10 ml Metoclopramide HCl (Reglan) 10 mg IVPUSH ONETIME ONE Stop: 11/27/16 11:25 Last Admin: 11/27/16 14:25 Dose: Not Given Midazolam HCl (Versed 1 Mg/Ml) Confirm Administered Dose 2 mg .ROUTE .STK-MED ONE Stop: 11/27/16 14:15 Ondansetron HCl (Zofran) Confirm Administered Dose 4 mg .ROUTE .STK-MED ONE Stop: 11/27/16 14:15 Propofol (Diprivan 20 Ml) Confirm Administered Dose 200 mg .ROUTE .STK-MED ONE Stop: 11/27/16 14:15 Rocuronium [place] (Zemuron) Confirm Administered Dose 50 mg .ROUTE .STK-MED ONE Stop: 11/27/16 14:15 Sodium Chloride (Saline Flush) 10 ml FLUSH ONETIME PRN PRN Reason: IV FLUSH Last Admin: 11/27/16 13:00 Dose: 10 ml - Exam Wound/Incisions: dressing dry and intact Abdomen: no tenderness, distension - Problem List & Annotations (1) Appendicitis SNOMED Code(s): 63069268 Code(s): K37 - UNSPECIFIED APPENDICITIS Status: Acute Priority: High Current Visit: Yes Qualifiers: Appendicitis type: acute appendicitis Acute appendicitis type: with localized peritonitis Qualified Code(s): K35.3 - Acute appendicitis with localized peritonitis - Problem List Review Problem List Initiated/Reviewed/Updated: Yes - My Orders Last 24 Hours: Active Orders 24 hr Category Date Time Status Communication Order [RC] ROUTINE Care 11/29/16 07:33 Ordered May Shower [RC] ASDIRECTED Care 11/29/16 07:32 Ordered Consult to Physical Therapy [PT Evaluation and Cons 11/28/16 07:41 Active Treatment] [CONS] Routine Full Liquid Diet [DIET] Diet 11/28/16 Lunch Active Regular Diet [DIET] Diet 11/29/16 Lunch Ordered Peripheral IV Discontinue [OM.PC] Routine Oth 11/29/16 07:32 Ordered Medication Orders Hydromorphone HCl (Dilaudid) 0.5 mg IVPUSH Q1H PRN PRN Reason: Pain (severe 7-10) Last Admin: 11/27/16 18:24 Dose: 0.5 mg Lactated Ringer's (Ringers, Lactated) 1,000 mls @ 125 mls/hr IV ASDIRECTED [facility] Last Admin: 11/29/16 04:08 Dose: 125 mls/hr Infusion: 11/29/16 04:07 Dose: 125 mls/hr Admin: 11/28/16 20:07 Dose: 125 mls/hr Infusion: 11/28/16 19:54 Dose: 125 mls/hr Admin: 11/28/16 11:54 Dose: 125 mls/hr Infusion: 11/28/16 11:54 Dose: 125 mls/hr Admin: 11/28/16 04:12 Dose: 125 mls/hr Infusion: 11/28/16 04:06 Dose: 125 mls/hr Admin: 11/27/16 20:06 Dose: 125 mls/hr Cefoxitin Sodium 2 gm/ Premix 50 mls @ 100 mls/hr IV Q6H [facility] Last Admin: 11/29/16 05:58 Dose: 100 mls/hr Infusion: 11/29/16 00:10 Dose: 100 mls/hr Admin: 11/28/16 23:40 Dose: 100 mls/hr Infusion: 11/28/16 17:48 Dose: 100 mls/hr Admin: 11/28/16 17:18 Dose: 100 mls/hr Infusion: 11/28/16 12:24 Dose: 100 mls/hr Admin: 11/28/16 11:54 Dose: 100 mls/hr Infusion: 11/28/16 06:26 Dose: 100 mls/hr Admin: 11/28/16 05:56 Dose: 100 mls/hr Infusion: 11/28/16 00:52 Dose: 100 mls/hr Admin: 11/28/16 00:22 Dose: 100 mls/hr Infusion: 11/27/16 18:52 Dose: 100 mls/hr Admin: 11/27/16 18:22 Dose: 100 mls/hr Ondansetron HCl (Zofran) 4 mg IVPUSH Q6H PRN PRN Reason: Nausea/Vomiting Oxycodone/Acetaminophen (Percocet 325-5 Mg) 2 tab PO Q4H PRN PRN Reason: Pain (moderate 4-6) Last Admin: 11/28/16 15:37 Dose: 2 tab Admin: 11/28/16 06:07 Dose: 2 tab Admin: 11/27/16 20:05 Dose: 2 tab - Assessment Assessment (Free Text/Narrative):: doing well - Plan Plan (Free Text/Narrative):: advance diet
[2016-11-29] MEDS ORDERED: Flu Vaccine 2016-17(36Mos+)/PF 60 MCG/0.5 ML Syringe IM ONE (08:17)
[2016-11-29] MEDS: Simethicone 80 MG Tab.Chew PO PRN (15:52)
[2016-11-29] MEDS: Acetaminophen/oxyCODONE 325-5 MG Tab PO PRN (20:04)
[2016-11-30] MEDS: cefOXitin 2 GM in Premix Bag 1 BAG IV SCH ×4 (00:52→18:32)
--- NOTE | 2016-11-30 08:17 | PCM.SURGPN ---
- General Info Functional Status: Reports: pain controlled, tolerating diet, ambulating, urinating - Review of Systems Gastrointestinal: Reports: Other (Occasional incisional discomfort) - Patient Data Vitals - most recent: Last Vital Signs Temp 37.2 C 11/30/16 00:54 Pulse 102 H 11/30/16 00:54 Resp 14 11/30/16 00:54 BP 126/60 11/30/16 00:54 Pulse Ox 98 11/30/16 00:54 Weight - most recent: 128.14 kg I&O - last 24 hours: Intake & Output 11/29/16 11/30/16 11/30/16 22:59 06:59 14:59 Intake Total 1892 900 Output Total 1400 1025 Balance 492 -125 Med Orders - Current: Current Medications Hydromorphone HCl (Dilaudid) 0.5 mg IVPUSH Q1H PRN PRN Reason: Pain (severe 7-10) Last Admin: 11/27/16 18:24 Dose: 0.5 mg Cefoxitin Sodium 2 gm/ Premix 50 mls @ 100 mls/hr IV Q6H [facility] Last Admin: 11/30/16 05:30 Dose: 100 mls/hr Ondansetron HCl (Zofran) 4 mg IVPUSH Q6H PRN PRN Reason: Nausea/Vomiting Oxycodone/Acetaminophen (Percocet 325-5 Mg) 2 tab PO Q4H PRN PRN Reason: Pain (moderate 4-6) Last Admin: 11/29/16 20:04 Dose: 2 tab Simethicone (Simethicone) 80 mg PO Q6H PRN PRN Reason: Gas Last Admin: 11/29/16 15:52 Dose: 80 mg Discontinued Medications Bupivacaine HCl/Epinephrine Bitart (Marcaine 0.5%/Epinephrine 1:200,000) Confirm Administered Dose 50 ml .ROUTE .STK-MED ONE Stop: 11/27/16 13:57 Last Admin: 11/27/16 14:48 Dose: 10 ml Diatrizoate Meglum/Diatrizoate Sod (Gastrografin 37%) 120 ml PO ONETIME ONE Stop: 11/27/16 11:56 Last Admin: 11/27/16 13:00 Dose: 90 ml Fentanyl (Sublimaze) Confirm Administered Dose 250 mcg .ROUTE .STK-MED ONE Stop: 11/27/16 14:16 Fentanyl (Sublimaze) Confirm Administered Dose 250 mcg .ROUTE .STK-MED ONE Stop: 11/27/16 15:19 Fentanyl (Sublimaze) 50 mcg IVPUSH Q5M PRN PRN Reason: PAIN Stop: 11/27/16 18:00 Hydromorphone HCl (Dilaudid) 0.5 mg IVPUSH ONETIME ONE Stop: 11/27/16 11:25 Last Admin: 11/27/16 14:25 Dose: Not Given Hydromorphone HCl (Dilaudid) 0.5 mg IVPUSH Q15M PRN PRN Reason: Pain Stop: 11/27/16 16:28 Last Admin: 11/27/16 17:00 Dose: 0.5 mg Dextrose/Sodium Chloride (Dextrose 5%-Normal Saline) 1,000 mls @ 999 mls/hr IV ASDIRECTED [facility] Last Admin: 11/27/16 11:41 Dose: 999 mls/hr Cefoxitin Sodium 2 gm/ Premix 50 mls @ 100 mls/hr IV ONETIME ONE Stop: 11/27/16 11:53 Last Admin: 11/27/16 13:00 Dose: 100 mls/hr Metronidazole 500 mg/ Premix 100 mls @ 100 mls/hr IV ONETIME ONE Stop: 11/27/16 14:49 Last Admin: 11/27/16 19:11 Dose: Not Given Lidocaine HCl (Xylocaine-Mpf 1%) Confirm Administered Dose 4 mls @ as directed .ROUTE .STK-MED ONE Stop: 11/27/16 14:16 Lactated Ringer's (Ringers, Lactated) Confirm Administered Dose 1,000 mls @ as directed .ROUTE .STK-MED ONE Stop: 11/27/16 15:23 Lactated Ringer's (Ringers, Lactated) Confirm Administered Dose 1,000 mls @ as directed .ROUTE .STK-MED ONE Stop: 11/27/16 16:02 Lactated Ringer's (Ringers, Lactated) 1,000 mls @ 125 mls/hr IV [facility]IRECTED [facility] Last Admin: 11/29/16 12:01 Dose: 125 mls/hr Influenza Virus Vaccine (Fluzone/Fluarix Vaccine) 60 mcg IM .ONCE ONE Stop: 11/29/16 08:18 Iopamidol (Isovue-300 (61%)) 150 ml IVPUSH ONETIME ONE Stop: 11/27/16 11:56 Last Admin: 11/27/16 13:00 Dose: 125 ml Lidocaine/Epinephrine (Xylocaine 1% With Epinephrine 1:100,000) Confirm Administered Dose 20 ml .ROUTE .STK-MED ONE Stop: 11/27/16 13:57 Last Admin: 11/27/16 14:48 Dose: 10 ml Metoclopramide HCl (Reglan) 10 mg IVPUSH ONETIME ONE Stop: 11/27/16 11:25 Last Admin: 11/27/16 14:25 Dose: Not Given Midazolam HCl (Versed 1 Mg/Ml) Confirm Administered Dose 2 mg .ROUTE .STK-MED ONE Stop: 11/27/16 14:15 Ondansetron HCl (Zofran) Confirm Administered Dose 4 mg .ROUTE .STK-MED ONE Stop: 11/27/16 14:15 Propofol (Diprivan 20 Ml) Confirm Administered Dose 200 mg .ROUTE .STK-MED ONE Stop: 11/27/16 14:15 Rocuronium [place] (Zemuron) Confirm Administered Dose 50 mg .ROUTE .STK-MED ONE Stop: 11/27/16 14:15 Sodium Chloride (Saline Flush) 10 ml FLUSH ONETIME PRN PRN Reason: IV FLUSH Last Admin: 11/27/16 13:00 Dose: 10 ml - Exam Wound/Incisions: dressing dry and intact - Problem List & Annotations (1) Appendicitis SNOMED Code(s): 97025102 Code(s): K37 - UNSPECIFIED APPENDICITIS Status: Acute Priority: High Current Visit: Yes Qualifiers: Appendicitis type: acute appendicitis Acute appendicitis type: with localized peritonitis Qualified Code(s): K35.3 - Acute appendicitis with localized peritonitis - Problem List Review Problem List Initiated/Reviewed/Updated: Yes - My Orders Last 24 Hours: Active Orders 24 hr Category Date Time Status Communication Order [RC] ROUTINE Care 11/29/16 07:33 Active May Shower [RC] ASDIRECTED Care 11/29/16 07:32 Active Regular Diet [DIET] Diet 11/29/16 Lunch Active Simethicone Med 11/29/16 15:37 Active 80 mg PO Q6H PRN Peripheral IV Discontinue [OM.PC] Routine Oth 11/29/16 07:32 Ordered Medication Orders Hydromorphone HCl (Dilaudid) 0.5 mg IVPUSH Q1H PRN PRN Reason: Pain (severe 7-10) Last Admin: 11/27/16 18:24 Dose: 0.5 mg Cefoxitin Sodium 2 gm/ Premix 50 mls @ 100 mls/hr IV Q6H [facility] Last Admin: 11/30/16 05:30 Dose: 100 mls/hr Infusion: 11/30/16 01:22 Dose: 100 mls/hr Admin: 11/30/16 00:52 Dose: 100 mls/hr Infusion: 11/29/16 17:38 Dose: 100 mls/hr Admin: 11/29/16 17:08 Dose: 100 mls/hr Infusion: 11/29/16 12:27 Dose: 100 mls/hr Admin: 11/29/16 11:57 Dose: 100 mls/hr Infusion: 11/29/16 06:28 Dose: 100 mls/hr Admin: 11/29/16 05:58 Dose: 100 mls/hr Infusion: 11/29/16 00:10 Dose: 100 mls/hr Admin: 11/28/16 23:40 Dose: 100 mls/hr Infusion: 11/28/16 17:48 Dose: 100 mls/hr Admin: 11/28/16 17:18 Dose: 100 mls/hr Infusion: 11/28/16 12:24 Dose: 100 mls/hr Admin: 11/28/16 11:54 Dose: 100 mls/hr Infusion: 11/28/16 06:26 Dose: 100 mls/hr Admin: 11/28/16 05:56 Dose: 100 mls/hr Infusion: 11/28/16 00:52 Dose: 100 mls/hr Admin: 11/28/16 00:22 Dose: 100 mls/hr Infusion: 11/27/16 18:52 Dose: 100 mls/hr Admin: 11/27/16 18:22 Dose: 100 mls/hr Ondansetron HCl (Zofran) 4 mg IVPUSH Q6H PRN PRN Reason: Nausea/Vomiting Oxycodone/Acetaminophen (Percocet 325-5 Mg) 2 tab PO Q4H PRN PRN Reason: Pain (moderate 4-6) Last Admin: 11/29/16 20:04 Dose: 2 tab Admin: 11/28/16 15:37 Dose: 2 tab Admin: 11/28/16 06:07 Dose: 2 tab Admin: 11/27/16 20:05 Dose: 2 tab Simethicone (Simethicone) 80 mg PO Q6H PRN PRN Reason: Gas Last Admin: 11/29/16 15:52 Dose: 80 mg - Assessment Assessment (Free Text/Narrative):: Doing well - Plan Plan (Free Text/Narrative):: Same
[2016-11-30] MEDS: Simethicone 80 MG Tab.Chew PO PRN ×2 (09:06→16:40)
[2016-11-30] MEDS: Acetaminophen/oxyCODONE 325-5 MG Tab PO PRN ×2 (09:06→16:40)
[2016-12-01] MEDS: cefOXitin 2 GM in Premix Bag 1 BAG IV SCH ×4 (00:06→18:02)
[2016-12-01] MEDS: Acetaminophen/oxyCODONE 325-5 MG Tab PO PRN ×2 (08:48→18:02)
--- NOTE | 2016-12-01 09:25 | PCM.SURGPN ---
- General Info Date of Service: 12/01/16 Functional Status: Reports: pain controlled, tolerating diet, ambulating, urinating - Patient Data Vitals - most recent: Last Vital Signs Temp 36.7 C 12/01/16 08:01 Pulse 100 12/01/16 08:01 Resp 18 12/01/16 08:01 BP 132/70 12/01/16 08:01 Pulse Ox 94 L 12/01/16 08:01 Weight - most recent: 127.958 kg I&O - last 24 hours: Intake & Output 11/30/16 12/01/16 12/01/16 22:59 06:59 14:59 Intake Total 1340 1700 Output Total 875 1150 Balance 465 550 Med Orders - Current: Current Medications Hydromorphone HCl (Dilaudid) 0.5 mg IVPUSH Q1H PRN PRN Reason: Pain (severe 7-10) Last Admin: 11/27/16 18:24 Dose: 0.5 mg Cefoxitin Sodium 2 gm/ Premix 50 mls @ 100 mls/hr IV Q6H [facility] Last Admin: 12/01/16 06:29 Dose: 100 mls/hr Ondansetron HCl (Zofran) 4 mg IVPUSH Q6H PRN PRN Reason: Nausea/Vomiting Oxycodone/Acetaminophen (Percocet 325-5 Mg) 2 tab PO Q4H PRN PRN Reason: Pain (moderate 4-6) Last Admin: 12/01/16 08:48 Dose: 2 tab Saccharomyces Boulardii (Florastor) 250 mg PO BID [facility] Simethicone (Simethicone) 80 mg PO Q6H PRN PRN Reason: Gas Last Admin: 11/30/16 16:40 Dose: 80 mg Discontinued Medications Bupivacaine HCl/Epinephrine Bitart (Marcaine 0.5%/Epinephrine 1:200,000) Confirm Administered Dose 50 ml .ROUTE .STK-MED ONE Stop: 11/27/16 13:57 Last Admin: 11/27/16 14:48 Dose: 10 ml Diatrizoate Meglum/Diatrizoate Sod (Gastrografin 37%) 120 ml PO ONETIME ONE Stop: 11/27/16 11:56 Last Admin: 11/27/16 13:00 Dose: 90 ml Fentanyl (Sublimaze) Confirm Administered Dose 250 mcg .ROUTE .STK-MED ONE Stop: 11/27/16 14:16 Fentanyl (Sublimaze) Confirm Administered Dose 250 mcg .ROUTE .STK-MED ONE Stop: 11/27/16 15:19 Fentanyl (Sublimaze) 50 mcg IVPUSH Q5M PRN PRN Reason: PAIN Stop: 11/27/16 18:00 Hydromorphone HCl (Dilaudid) 0.5 mg IVPUSH ONETIME ONE Stop: 11/27/16 11:25 Last Admin: 11/27/16 14:25 Dose: Not Given Hydromorphone HCl (Dilaudid) 0.5 mg IVPUSH Q15M PRN PRN Reason: Pain Stop: 11/27/16 16:28 Last Admin: 11/27/16 17:00 Dose: 0.5 mg Dextrose/Sodium Chloride (Dextrose 5%-Normal Saline) 1,000 mls @ 999 mls/hr IV ASDIRECTED [facility] Last Admin: 11/27/16 11:41 Dose: 999 mls/hr Cefoxitin Sodium 2 gm/ Premix 50 mls @ 100 mls/hr IV ONETIME ONE Stop: 11/27/16 11:53 Last Admin: 11/27/16 13:00 Dose: 100 mls/hr Metronidazole 500 mg/ Premix 100 mls @ 100 mls/hr IV ONETIME ONE Stop: 11/27/16 14:49 Last Admin: 11/27/16 19:11 Dose: Not Given Lidocaine HCl (Xylocaine-Mpf 1%) Confirm Administered Dose 4 mls @ as directed .ROUTE .STK-MED ONE Stop: 11/27/16 14:16 Lactated Ringer's (Ringers, Lactated) Confirm Administered Dose 1,000 mls @ as directed .ROUTE .STK-MED ONE Stop: 11/27/16 15:23 Lactated Ringer's (Ringers, Lactated) Confirm Administered Dose 1,000 mls @ as directed .ROUTE .STK-MED ONE Stop: 11/27/16 16:02 Lactated Ringer's (Ringers, Lactated) 1,000 mls @ 125 mls/hr IV ASDIRECTED [facility] Last Admin: 11/29/16 12:01 Dose: 125 mls/hr Influenza Virus Vaccine (Fluzone/Fluarix Vaccine) 60 mcg IM .ONCE ONE Stop: 11/29/16 08:18 Last Admin: 11/30/16 09:34 Dose: Not Given Iopamidol (Isovue-300 (61%)) 150 ml IVPUSH ONETIME ONE Stop: 11/27/16 11:56 Last Admin: 11/27/16 13:00 Dose: 125 ml Lidocaine/Epinephrine (Xylocaine 1% With Epinephrine 1:100,000) Confirm Administered Dose 20 ml .ROUTE .STK-MED ONE Stop: 11/27/16 13:57 Last Admin: 11/27/16 14:48 Dose: 10 ml Metoclopramide HCl (Reglan) 10 mg IVPUSH ONETIME ONE Stop: 11/27/16 11:25 Last Admin: 11/27/16 14:25 Dose: Not Given Midazolam HCl (Versed 1 Mg/Ml) Confirm Administered Dose 2 mg .ROUTE .STK-MED ONE Stop: 11/27/16 14:15 Ondansetron HCl (Zofran) Confirm Administered Dose 4 mg .ROUTE .STK-MED ONE Stop: 11/27/16 14:15 Propofol (Diprivan 20 Ml) Confirm Administered Dose 200 mg .ROUTE .STK-MED ONE Stop: 11/27/16 14:15 Rocuronium [place] (Zemuron) Confirm Administered Dose 50 mg .ROUTE .STK-MED ONE Stop: 11/27/16 14:15 Sodium Chloride (Saline Flush) 10 ml FLUSH ONETIME PRN PRN Reason: IV FLUSH Last Admin: 11/27/16 13:00 Dose: 10 ml - Exam Abdomen: soft, no tenderness - Problem List & Annotations (1) Appendicitis SNOMED Code(s): 15073706 Code(s): K37 - UNSPECIFIED APPENDICITIS Status: Acute Priority: High Current Visit: Yes Qualifiers: Appendicitis type: acute appendicitis Acute appendicitis type: with localized peritonitis Qualified Code(s): K35.3 - Acute appendicitis with localized peritonitis - Problem List Review Problem List Initiated/Reviewed/Updated: Yes - My Orders Last 24 Hours: Active Orders 24 hr Category Date Time Status Saccharomyces Boulardii [Florastor] Med 12/01/16 09:30 Ordered 250 mg PO BID Medication Orders Hydromorphone HCl (Dilaudid) 0.5 mg IVPUSH Q1H PRN PRN Reason: Pain (severe 7-10) Last Admin: 11/27/16 18:24 Dose: 0.5 mg Cefoxitin Sodium 2 gm/ Premix 50 mls @ 100 mls/hr IV Q6H [facility] Last Admin: 12/01/16 06:29 Dose: 100 mls/hr Infusion: 12/01/16 00:36 Dose: 100 mls/hr Admin: 12/01/16 00:06 Dose: 100 mls/hr Infusion: 11/30/16 19:02 Dose: 100 mls/hr Admin: 11/30/16 18:32 Dose: 100 mls/hr Infusion: 11/30/16 13:56 Dose: 100 mls/hr Admin: 11/30/16 13:26 Dose: 100 mls/hr Infusion: 11/30/16 06:00 Dose: 100 mls/hr Admin: 11/30/16 05:30 Dose: 100 mls/hr Infusion: 11/30/16 01:22 Dose: 100 mls/hr Admin: 11/30/16 00:52 Dose: 100 mls/hr Infusion: 11/29/16 17:38 Dose: 100 mls/hr Admin: 11/29/16 17:08 Dose: 100 mls/hr Infusion: 11/29/16 12:27 Dose: 100 mls/hr Admin: 11/29/16 11:57 Dose: 100 mls/hr Infusion: 11/29/16 06:28 Dose: 100 mls/hr Admin: 11/29/16 05:58 Dose: 100 mls/hr Infusion: 11/29/16 00:10 Dose: 100 mls/hr Admin: 11/28/16 23:40 Dose: 100 mls/hr Infusion: 11/28/16 17:48 Dose: 100 mls/hr Admin: 11/28/16 17:18 Dose: 100 mls/hr Infusion: 11/28/16 12:24 Dose: 100 mls/hr Admin: 11/28/16 11:54 Dose: 100 mls/hr Infusion: 11/28/16 06:26 Dose: 100 mls/hr Admin: 11/28/16 05:56 Dose: 100 mls/hr Infusion: 11/28/16 00:52 Dose: 100 mls/hr Admin: 11/28/16 00:22 Dose: 100 mls/hr Infusion: 11/27/16 18:52 Dose: 100 mls/hr Admin: 11/27/16 18:22 Dose: 100 mls/hr Ondansetron HCl (Zofran) 4 mg IVPUSH Q6H PRN PRN Reason: Nausea/Vomiting Oxycodone/Acetaminophen (Percocet 325-5 Mg) 2 tab PO Q4H PRN PRN Reason: Pain (moderate 4-6) Last Admin: 12/01/16 08:48 Dose: 2 tab Admin: 11/30/16 16:40 Dose: 2 tab Admin: 11/30/16 09:06 Dose: 2 tab Admin: 11/29/16 20:04 Dose: 2 tab Admin: 11/28/16 15:37 Dose: 2 tab Admin: 11/28/16 06:07 Dose: 2 tab Admin: 11/27/16 20:05 Dose: 2 tab Saccharomyces Boulardii (Florastor) 250 mg PO BID GABBY Simethicone (Simethicone) 80 mg PO Q6H PRN PRN Reason: Gas Last Admin: 11/30/16 16:40 Dose: 80 mg Admin: 11/30/16 09:06 Dose: 80 mg Admin: 11/29/16 15:52 Dose: 80 mg - Assessment Assessment (Free Text/Narrative):: Doing well - Plan Plan (Free Text/Narrative):: Plan discharge. Friday
[2016-12-01] MEDS: Saccharomyces Boulardii (Probiotic) 250 MG Cap PO SCH ×2 (10:26→21:24)
[2016-12-01] MEDS: Simethicone 80 MG Tab.Chew PO PRN (16:17)
[2016-12-02] MEDS: cefOXitin 2 GM in Premix Bag 1 BAG IV SCH ×4 (01:10→18:48)
--- NOTE | 2016-12-02 07:44 | PCM.SURGPN ---
- General Info Date of Service: 12/02/16 Functional Status: Reports: pain controlled, tolerating diet, ambulating, urinating (says urine is dark) - Review of Systems Gastrointestinal: Reports: Diarrhea (but firming up) - Patient Data Vitals - most recent: Last Vital Signs Temp 36.9 C 12/01/16 21:23 Pulse 88 12/01/16 21:23 Resp 20 12/01/16 21:23 BP 142/89 H 12/01/16 21:23 Pulse Ox 95 12/01/16 21:23 Weight - most recent: 125.827 kg I&O - last 24 hours: Intake & Output 12/01/16 12/02/16 12/02/16 22:59 06:59 14:59 Intake Total 720 1600 Output Total 1600 1550 Balance -880 50 Med Orders - Current: Current Medications Hydromorphone HCl (Dilaudid) 0.5 mg IVPUSH Q1H PRN PRN Reason: Pain (severe 7-10) Last Admin: 11/27/16 18:24 Dose: 0.5 mg Cefoxitin Sodium 2 gm/ Premix 50 mls @ 100 mls/hr IV Q6H [facility] Last Admin: 12/02/16 05:27 Dose: 100 mls/hr Ondansetron HCl (Zofran) 4 mg IVPUSH Q6H PRN PRN Reason: Nausea/Vomiting Oxycodone/Acetaminophen (Percocet 325-5 Mg) 2 tab PO Q4H PRN PRN Reason: Pain (moderate 4-6) Last Admin: 12/01/16 18:02 Dose: 2 tab Saccharomyces Boulardii (Florastor) 250 mg PO BID [facility] Last Admin: 12/01/16 21:24 Dose: 250 mg Simethicone (Simethicone) 80 mg PO Q6H PRN PRN Reason: Gas Last Admin: 12/01/16 16:17 Dose: 80 mg Discontinued Medications Bupivacaine HCl/Epinephrine Bitart (Marcaine 0.5%/Epinephrine 1:200,000) Confirm Administered Dose 50 ml .ROUTE .STK-MED ONE Stop: 11/27/16 13:57 Last Admin: 11/27/16 14:48 Dose: 10 ml Diatrizoate Meglum/Diatrizoate Sod (Gastrografin 37%) 120 ml PO ONETIME ONE Stop: 11/27/16 11:56 Last Admin: 11/27/16 13:00 Dose: 90 ml Fentanyl (Sublimaze) Confirm Administered Dose 250 mcg .ROUTE .STK-MED ONE Stop: 11/27/16 14:16 Fentanyl (Sublimaze) Confirm Administered Dose 250 mcg .ROUTE .STK-MED ONE Stop: 11/27/16 15:19 Fentanyl (Sublimaze) 50 mcg IVPUSH Q5M PRN PRN Reason: PAIN Stop: 11/27/16 18:00 Hydromorphone HCl (Dilaudid) 0.5 mg IVPUSH ONETIME ONE Stop: 11/27/16 11:25 Last Admin: 11/27/16 14:25 Dose: Not Given Hydromorphone HCl (Dilaudid) 0.5 mg IVPUSH Q15M PRN PRN Reason: Pain Stop: 11/27/16 16:28 Last Admin: 11/27/16 17:00 Dose: 0.5 mg Dextrose/Sodium Chloride (Dextrose 5%-Normal Saline) 1,000 mls @ 999 mls/hr IV ASDIRECTED [facility] Last Admin: 11/27/16 11:41 Dose: 999 mls/hr Cefoxitin Sodium 2 gm/ Premix 50 mls @ 100 mls/hr IV ONETIME ONE Stop: 11/27/16 11:53 Last Admin: 11/27/16 13:00 Dose: 100 mls/hr Metronidazole 500 mg/ Premix 100 mls @ 100 mls/hr IV ONETIME ONE Stop: 11/27/16 14:49 Last Admin: 11/27/16 19:11 Dose: Not Given Lidocaine HCl (Xylocaine-Mpf 1%) Confirm Administered Dose 4 mls @ as directed .ROUTE .STK-MED ONE Stop: 11/27/16 14:16 Lactated Ringer's (Ringers, Lactated) Confirm Administered Dose 1,000 mls @ as directed .ROUTE .STK-MED ONE Stop: 11/27/16 15:23 Lactated Ringer's (Ringers, Lactated) Confirm Administered Dose 1,000 mls @ as directed .ROUTE .STK-MED ONE Stop: 11/27/16 16:02 Lactated Ringer's (Ringers, Lactated) 1,000 mls @ 125 mls/hr IV ASDIRECTED [facility] Last Admin: 11/29/16 12:01 Dose: 125 mls/hr Influenza Virus Vaccine (Fluzone/Fluarix Vaccine) 60 mcg IM .ONCE ONE Stop: 11/29/16 08:18 Last Admin: 11/30/16 09:34 Dose: Not Given Iopamidol (Isovue-300 (61%)) 150 ml IVPUSH ONETIME ONE Stop: 11/27/16 11:56 Last Admin: 11/27/16 13:00 Dose: 125 ml Lidocaine/Epinephrine (Xylocaine 1% With Epinephrine 1:100,000) Confirm Administered Dose 20 ml .ROUTE .STK-MED ONE Stop: 11/27/16 13:57 Last Admin: 11/27/16 14:48 Dose: 10 ml Metoclopramide HCl (Reglan) 10 mg IVPUSH ONETIME ONE Stop: 11/27/16 11:25 Last Admin: 11/27/16 14:25 Dose: Not Given Midazolam HCl (Versed 1 Mg/Ml) Confirm Administered Dose 2 mg .ROUTE .STK-MED ONE Stop: 11/27/16 14:15 Ondansetron HCl (Zofran) Confirm Administered Dose 4 mg .ROUTE .STK-MED ONE Stop: 11/27/16 14:15 Propofol (Diprivan 20 Ml) Confirm Administered Dose 200 mg .ROUTE .STK-MED ONE Stop: 11/27/16 14:15 Rocuronium [place] (Zemuron) Confirm Administered Dose 50 mg .ROUTE .STK-MED ONE Stop: 11/27/16 14:15 Sodium Chloride (Saline Flush) 10 ml FLUSH ONETIME PRN PRN Reason: IV FLUSH Last Admin: 11/27/16 13:00 Dose: 10 ml - Exam Abdomen: soft, no tenderness - Problem List & Annotations (1) Appendicitis SNOMED Code(s): 82276410 Code(s): K37 - UNSPECIFIED APPENDICITIS Status: Acute Priority: High Current Visit: Yes Qualifiers: Appendicitis type: acute appendicitis Acute appendicitis type: with localized peritonitis Qualified Code(s): K35.3 - Acute appendicitis with localized peritonitis - Problem List Review Problem List Initiated/Reviewed/Updated: Yes - My Orders Last 24 Hours: Active Orders 24 hr Category Date Time Status CBC WITH AUTO DIFF [HEME] Routine Lab 12/02/16 07:42 Ordered UA W/MICROSCOPIC [URIN] Routine Lab 12/02/16 07:42 Uncollected Psyllium Husk/Aspartame [Metamucil Sugar Free] Med 12/02/16 09:00 Ordered 1 packet PO BID Saccharomyces Boulardii [Florastor] Med 12/01/16 09:30 Active 250 mg PO BID Medication Orders Hydromorphone HCl (Dilaudid) 0.5 mg IVPUSH Q1H PRN PRN Reason: Pain (severe 7-10) Last Admin: 11/27/16 18:24 Dose: 0.5 mg Cefoxitin Sodium 2 gm/ Premix 50 mls @ 100 mls/hr IV Q6H [facility] Last Admin: 12/02/16 05:27 Dose: 100 mls/hr Infusion: 12/02/16 01:40 Dose: 100 mls/hr Admin: 12/02/16 01:10 Dose: 100 mls/hr Infusion: 12/01/16 18:32 Dose: 100 mls/hr Admin: 12/01/16 18:02 Dose: 100 mls/hr Infusion: 12/01/16 12:06 Dose: 100 mls/hr Admin: 12/01/16 11:36 Dose: 100 mls/hr Infusion: 12/01/16 06:59 Dose: 100 mls/hr Admin: 12/01/16 06:29 Dose: 100 mls/hr Infusion: 12/01/16 00:36 Dose: 100 mls/hr Admin: 12/01/16 00:06 Dose: 100 mls/hr Infusion: 11/30/16 19:02 Dose: 100 mls/hr Admin: 11/30/16 18:32 Dose: 100 mls/hr Infusion: 11/30/16 13:56 Dose: 100 mls/hr Admin: 11/30/16 13:26 Dose: 100 mls/hr Infusion: 11/30/16 06:00 Dose: 100 mls/hr Admin: 11/30/16 05:30 Dose: 100 mls/hr Infusion: 11/30/16 01:22 Dose: 100 mls/hr Admin: 11/30/16 00:52 Dose: 100 mls/hr Infusion: 11/29/16 17:38 Dose: 100 mls/hr Admin: 11/29/16 17:08 Dose: 100 mls/hr Infusion: 11/29/16 12:27 Dose: 100 mls/hr Admin: 11/29/16 11:57 Dose: 100 mls/hr Infusion: 11/29/16 06:28 Dose: 100 mls/hr Admin: 11/29/16 05:58 Dose: 100 mls/hr Infusion: 11/29/16 00:10 Dose: 100 mls/hr Admin: 11/28/16 23:40 Dose: 100 mls/hr Infusion: 11/28/16 17:48 Dose: 100 mls/hr Admin: 11/28/16 17:18 Dose: 100 mls/hr Infusion: 11/28/16 12:24 Dose: 100 mls/hr Admin: 11/28/16 11:54 Dose: 100 mls/hr Infusion: 11/28/16 06:26 Dose: 100 mls/hr Admin: 11/28/16 05:56 Dose: 100 mls/hr Infusion: 11/28/16 00:52 Dose: 100 mls/hr Admin: 11/28/16 00:22 Dose: 100 mls/hr Infusion: 11/27/16 18:52 Dose: 100 mls/hr Admin: 11/27/16 18:22 Dose: 100 mls/hr Ondansetron HCl (Zofran) 4 mg IVPUSH Q6H PRN PRN Reason: Nausea/Vomiting Oxycodone/Acetaminophen (Percocet 325-5 Mg) 2 tab PO Q4H PRN PRN Reason: Pain (moderate 4-6) Last Admin: 12/01/16 18:02 Dose: 2 tab Admin: 12/01/16 08:48 Dose: 2 tab Admin: 11/30/16 16:40 Dose: 2 tab Admin: 11/30/16 09:06 Dose: 2 tab Admin: 11/29/16 20:04 Dose: 2 tab Admin: 11/28/16 15:37 Dose: 2 tab Admin: 11/28/16 06:07 Dose: 2 tab Admin: 11/27/16 20:05 Dose: 2 tab Saccharomyces Boulardii (Florastor) 250 mg PO BID [facility] Last Admin: 12/01/16 21:24 Dose: 250 mg Admin: 12/01/16 10:26 Dose: 250 mg Simethicone (Simethicone) 80 mg PO Q6H PRN PRN Reason: Gas Last Admin: 12/01/16 16:17 Dose: 80 mg Admin: 11/30/16 16:40 Dose: 80 mg Admin: 11/30/16 09:06 Dose: 80 mg Admin: 11/29/16 15:52 Dose: 80 mg - Assessment Assessment (Free Text/Narrative):: check labs - Plan Plan (Free Text/Narrative):: probable discharge in a.m.
[2016-12-02] MEDS: Saccharomyces Boulardii (Probiotic) 250 MG Cap PO SCH ×2 (08:55→21:09)
[2016-12-02] MEDS: Psyllium Husk Powder Sugar Free 3.4 GM Packet PO SCH ×2 (08:55→21:09)
[2016-12-02] MEDS: Acetaminophen/oxyCODONE 325-5 MG Tab PO PRN ×2 (09:03→18:48)
[2016-12-03] MEDS: cefOXitin 2 GM in Premix Bag 1 BAG IV SCH ×4 (01:54→18:58)
--- NOTE | 2016-12-03 07:35 | PCM.SURGPN ---
- General Info Date of Service: 12/03/16 Functional Status: Reports: pain controlled, tolerating diet, ambulating, urinating - Review of Systems Gastrointestinal: Reports: Abdominal pain (mild infraumbilical) - Patient Data Vitals - most recent: Last Vital Signs Temp 35.8 C 12/03/16 02:45 Pulse 83 12/03/16 02:45 Resp 16 12/03/16 02:45 BP 132/92 H 12/03/16 02:45 Pulse Ox 93 L 12/03/16 02:45 Weight - most recent: 124.965 kg I&O - last 24 hours: Intake & Output 12/02/16 12/03/16 12/03/16 22:59 06:59 14:59 Intake Total 1120 950 Output Total 2375 1800 Balance -1255 -850 Lab Results last 24 hrs: Laboratory Results - last 24 hr 12/02/16 12/02/16 Range/Units 08:05 08:16 WBC 16.86 H (4.23-9.07) K/mm3 RBC 5.78 (4.63-6.08) M/mm3 Hgb 10.5 L (13.7-17.5) gm/L Hct 31.6 L (40.1-51.0) % MCV 54.7 L (79.0-92.2) fl MCH 18.2 L (25.7-32.2) pg MCHC 33.2 (32.2-35.5) g/dl RDW Std Deviation 31.6 L (35.1-43.9) fL Plt Count 459 H (163-337) K/mm3 MPV 9.5 (9.4-12.3) fl Neut % (Auto) 75.7 H (34.0-67.9) % Lymph % (Auto) 9.1 L (21.8-53.1) % [place] % (Auto) 9.0 (5.3-12.2) % Eos % (Auto) 1.3 (0.8-7.0) Baso % (Auto) 1.1 (0.1-1.2) % Neut # (Auto) 12.76 H (1.78-5.38) K/mm3 Lymph # (Auto) 1.54 (1.32-3.57) K/mm3 [place] # (Auto) 1.52 H (0.30-0.82) K/mm3 Eos # (Auto) 0.22 (0.04-0.54) K/mm3 Baso # (Auto) 0.18 H (0.01-0.08) K/mm3 Manual Slide Review Abnormal smear Urine Color Yellow (Yellow) Urine Appearance Clear (Clear) Urine pH 7.5 (5.0-8.0) Ur Specific [place] 1.020 (1.005-1.030) Urine Protein 1+ H (Negative) Urine Glucose (UA) Negative (Negative) Urine Ketones Negative (Negative) Urine Occult Blood Negative (Negative) Urine Nitrite Negative (Negative) Urine Bilirubin Negative (Negative) Urine Urobilinogen 1.0 (0.2-1.0) Ur Leukocyte Esterase Negative (Negative) Urine RBC Not seen (0-5) /hpf Urine WBC 0-5 (0-5) /hpf Ur Epithelial Cells Not seen (0-5) /hpf Amorphous Sediment Few H (NOT SEEN) /hpf Urine Bacteria Few (FEW) /hpf Urine Mucus Not seen (FEW) /hpf Med Orders - Current: Current Medications Hydromorphone HCl (Dilaudid) 0.5 mg IVPUSH Q1H PRN PRN Reason: Pain (severe 7-10) Last Admin: 11/27/16 18:24 Dose: 0.5 mg Cefoxitin Sodium 2 gm/ Premix 50 mls @ 100 mls/hr IV Q6H [facility] Last Admin: 12/03/16 06:46 Dose: 100 mls/hr Ondansetron HCl (Zofran) 4 mg IVPUSH Q6H PRN PRN Reason: Nausea/Vomiting Oxycodone/Acetaminophen (Percocet 325-5 Mg) 2 tab PO Q4H PRN PRN Reason: Pain (moderate 4-6) Last Admin: 12/02/16 18:48 Dose: 2 tab Psyllium Husk (Metamucil Sugar Free) 1 packet PO BID [facility] Last Admin: 12/02/16 21:09 Dose: 1 packet Saccharomyces Boulardii (Florastor) 250 mg PO BID [facility] Last Admin: 12/02/16 21:09 Dose: 250 mg Simethicone (Simethicone) 80 mg PO Q6H PRN PRN Reason: Gas Last Admin: 12/01/16 16:17 Dose: 80 mg Discontinued Medications Bupivacaine HCl/Epinephrine Bitart (Marc[place] 0.5%/Epinephrine 1:200,000) Confirm Administered Dose 50 ml .ROUTE .STK-MED ONE Stop: 11/27/16 13:57 Last Admin: 11/27/16 14:48 Dose: 10 ml Diatrizoate Meglum/Diatrizoate Sod (Gastrografin 37%) 120 ml PO ONETIME ONE Stop: 11/27/16 11:56 Last Admin: 11/27/16 13:00 Dose: 90 ml Fentanyl (Sublimaze) Confirm Administered Dose 250 mcg .ROUTE .STK-MED ONE Stop: 11/27/16 14:16 Fentanyl (Sublimaze) Confirm Administered Dose 250 mcg .ROUTE .STK-MED ONE Stop: 11/27/16 15:19 Fentanyl (Sublimaze) 50 mcg IVPUSH Q5M PRN PRN Reason: PAIN Stop: 11/27/16 18:00 Hydromorphone HCl (Dilaudid) 0.5 mg IVPUSH ONETIME ONE Stop: 11/27/16 11:25 Last Admin: 11/27/16 14:25 Dose: Not Given Hydromorphone HCl (Dilaudid) 0.5 mg IVPUSH Q15M PRN PRN Reason: Pain Stop: 11/27/16 16:28 Last Admin: 11/27/16 17:00 Dose: 0.5 mg Dextrose/Sodium Chloride (Dextrose 5%-Normal Saline) 1,000 mls @ 999 mls/hr IV ASDIRECTED [facility] Last Admin: 11/27/16 11:41 Dose: 999 mls/hr Cefoxitin Sodium 2 gm/ Premix 50 mls @ 100 mls/hr IV ONETIME ONE Stop: 11/27/16 11:53 Last Admin: 11/27/16 13:00 Dose: 100 mls/hr Metronidazole 500 mg/ Premix 100 mls @ 100 mls/hr IV ONETIME ONE Stop: 11/27/16 14:49 Last Admin: 11/27/16 19:11 Dose: Not Given Lidocaine HCl (Xylocaine-Mpf 1%) Confirm Administered Dose 4 mls @ as directed .ROUTE .STK-MED ONE Stop: 11/27/16 14:16 Lactated Ringer's (Ringers, Lactated) Confirm Administered Dose 1,000 mls @ as directed .ROUTE .STK-MED ONE Stop: 11/27/16 15:23 Lactated Ringer's (Ringers, Lactated) Confirm Administered Dose 1,000 mls @ as directed .ROUTE .STK-MED ONE Stop: 11/27/16 16:02 Lactated Ringer's (Ringers, Lactated) 1,000 mls @ 125 mls/hr IV ASDIRECTED [facility] Last Admin: 11/29/16 12:01 Dose: 125 mls/hr Influenza Virus Vaccine (Fluzone/Fluarix Vaccine) 60 mcg IM .ONCE ONE Stop: 11/29/16 08:18 Last Admin: 11/30/16 09:34 Dose: Not Given Iopamidol (Isovue-300 (61%)) 150 ml IVPUSH ONETIME ONE Stop: 11/27/16 11:56 Last Admin: 11/27/16 13:00 Dose: 125 ml Lidocaine/Epinephrine (Xylocaine 1% With Epinephrine 1:100,000) Confirm Administered Dose 20 ml .ROUTE .STK-MED ONE Stop: 11/27/16 13:57 Last Admin: 11/27/16 14:48 Dose: 10 ml Metoclopramide HCl (Reglan) 10 mg IVPUSH ONETIME ONE Stop: 11/27/16 11:25 Last Admin: 11/27/16 14:25 Dose: Not Given Midazolam HCl (Versed 1 Mg/Ml) Confirm Administered Dose 2 mg .ROUTE .STK-MED ONE Stop: 11/27/16 14:15 Ondansetron HCl (Zofran) Confirm Administered Dose 4 mg .ROUTE .STK-MED ONE Stop: 11/27/16 14:15 Propofol (Diprivan 20 Ml) Confirm Administered Dose 200 mg .ROUTE .STK-MED ONE Stop: 11/27/16 14:15 Rocuronium [place] (Zemuron) Confirm Administered Dose 50 mg .ROUTE .STK-MED ONE Stop: 11/27/16 14:15 Sodium Chloride (Saline Flush) 10 ml FLUSH ONETIME PRN PRN Reason: IV FLUSH Last Admin: 11/27/16 13:00 Dose: 10 ml - Exam Wound/Incisions: healing well Abdomen: soft, no tenderness, no distension - Problem List & Annotations (1) Appendicitis SNOMED Code(s): 63334663 Code(s): K37 - UNSPECIFIED APPENDICITIS Status: Acute Priority: High Current Visit: Yes Qualifiers: Appendicitis type: acute appendicitis Acute appendicitis type: with localized peritonitis Qualified Code(s): K35.3 - Acute appendicitis with localized peritonitis - Problem List Review Problem List Initiated/Reviewed/Updated: Yes - My Orders Last 24 Hours: Active Orders 24 hr Category Date Time Status Abdomen Pelvis w Cont [CT] Routine Exams 12/03/16 07:30 Ordered Abdomen w Cont [CT] Routine Exams 12/03/16 07:30 Ordered Psyllium Husk/Aspartame [Metamucil Sugar Free] Med 12/02/16 09:00 Active 1 packet PO BID Medication Orders Hydromorphone HCl (Dilaudid) 0.5 mg IVPUSH Q1H PRN PRN Reason: Pain (severe 7-10) Last Admin: 11/27/16 18:24 Dose: 0.5 mg Cefoxitin Sodium 2 gm/ Premix 50 mls @ 100 mls/hr IV Q6H [facility] Last Admin: 12/03/16 06:46 Dose: 100 mls/hr Infusion: 12/03/16 02:24 Dose: 100 mls/hr Admin: 12/03/16 01:54 Dose: 100 mls/hr Infusion: 12/02/16 19:18 Dose: 100 mls/hr Admin: 12/02/16 18:48 Dose: 100 mls/hr Infusion: 12/02/16 12:18 Dose: 100 mls/hr Admin: 12/02/16 11:48 Dose: 100 mls/hr Infusion: 12/02/16 05:57 Dose: 100 mls/hr Admin: 12/02/16 05:27 Dose: 100 mls/hr Infusion: 12/02/16 01:40 Dose: 100 mls/hr Admin: 12/02/16 01:10 Dose: 100 mls/hr Infusion: 12/01/16 18:32 Dose: 100 mls/hr Admin: 12/01/16 18:02 Dose: 100 mls/hr Infusion: 12/01/16 12:06 Dose: 100 mls/hr Admin: 12/01/16 11:36 Dose: 100 mls/hr Infusion: 12/01/16 06:59 Dose: 100 mls/hr Admin: 12/01/16 06:29 Dose: 100 mls/hr Infusion: 12/01/16 00:36 Dose: 100 mls/hr Admin: 12/01/16 00:06 Dose: 100 mls/hr Infusion: 11/30/16 19:02 Dose: 100 mls/hr Admin: 11/30/16 18:32 Dose: 100 mls/hr Infusion: 11/30/16 13:56 Dose: 100 mls/hr Admin: 11/30/16 13:26 Dose: 100 mls/hr Infusion: 11/30/16 06:00 Dose: 100 mls/hr Admin: 11/30/16 05:30 Dose: 100 mls/hr Infusion: 11/30/16 01:22 Dose: 100 mls/hr Admin: 11/30/16 00:52 Dose: 100 mls/hr Infusion: 11/29/16 17:38 Dose: 100 mls/hr Admin: 11/29/16 17:08 Dose: 100 mls/hr Infusion: 11/29/16 12:27 Dose: 100 mls/hr Admin: 11/29/16 11:57 Dose: 100 mls/hr Infusion: 11/29/16 06:28 Dose: 100 mls/hr Admin: 11/29/16 05:58 Dose: 100 mls/hr Infusion: 11/29/16 00:10 Dose: 100 mls/hr Admin: 11/28/16 23:40 Dose: 100 mls/hr Infusion: 11/28/16 17:48 Dose: 100 mls/hr Admin: 11/28/16 17:18 Dose: 100 mls/hr Infusion: 11/28/16 12:24 Dose: 100 mls/hr Admin: 11/28/16 11:54 Dose: 100 mls/hr Infusion: 11/28/16 06:26 Dose: 100 mls/hr Admin: 11/28/16 05:56 Dose: 100 mls/hr Infusion: 11/28/16 00:52 Dose: 100 mls/hr Admin: 11/28/16 00:22 Dose: 100 mls/hr Infusion: 11/27/16 18:52 Dose: 100 mls/hr Admin: 11/27/16 18:22 Dose: 100 mls/hr Ondansetron HCl (Zofran) 4 mg IVPUSH Q6H PRN PRN Reason: Nausea/Vomiting Oxycodone/Acetaminophen (Percocet 325-5 Mg) 2 tab PO Q4H PRN PRN Reason: Pain (moderate 4-6) Last Admin: 12/02/16 18:48 Dose: 2 tab Admin: 12/02/16 09:03 Dose: 2 tab Admin: 12/01/16 18:02 Dose: 2 tab Admin: 12/01/16 08:48 Dose: 2 tab Admin: 11/30/16 16:40 Dose: 2 tab Admin: 11/30/16 09:06 Dose: 2 tab Admin: 11/29/16 20:04 Dose: 2 tab Admin: 11/28/16 15:37 Dose: 2 tab Admin: 11/28/16 06:07 Dose: 2 tab Admin: 11/27/16 20:05 Dose: 2 tab Psyllium Husk (Metamucil Sugar Free) 1 packet PO BID [facility] Last Admin: 12/02/16 21:09 Dose: 1 packet Admin: 12/02/16 08:55 Dose: 1 packet Saccharomyces Boulardii (Florastor) 250 mg PO BID [facility] Last Admin: 12/02/16 21:09 Dose: 250 mg Admin: 12/02/16 08:55 Dose: 250 mg Admin: 12/01/16 21:24 Dose: 250 mg Admin: 12/01/16 10:26 Dose: 250 mg Simethicone (Simethicone) 80 mg PO Q6H PRN PRN Reason: Gas Last Admin: 12/01/16 16:17 Dose: 80 mg Admin: 11/30/16 16:40 Dose: 80 mg Admin: 11/30/16 09:06 Dose: 80 mg Admin: 11/29/16 15:52 Dose: 80 mg - Assessment Assessment (Free Text/Narrative):: With a leukocytosis of 18,000 although the patient is clinically doing well this may reflect an abdominal or pelvic abscess. - Plan Plan (Free Text/Narrative):: Abdominal and pelvic CT scan with IV contrast.
[2016-12-03] MEDS ORDERED: Sodium Chloride 0.9% 10 ML Syringe FLUSH ONE (07:51)
[2016-12-03] MEDS ORDERED: Iopamidol 612 MG/ML 150 ML Bottle IVPUSH ONE (07:51)
[2016-12-03] MEDS: Acetaminophen/oxyCODONE 325-5 MG Tab PO PRN (08:22)
[2016-12-03] MEDS: Psyllium Husk Powder Sugar Free 3.4 GM Packet PO SCH ×2 (08:35→21:49)
[2016-12-03] MEDS: Saccharomyces Boulardii (Probiotic) 250 MG Cap PO SCH ×2 (08:35→21:49)
--- NOTE | 2016-12-03 10:00 | CT ---
CT abdomen and pelvis Technique: Multiple axial sections were obtained from above the dome of the diaphragm inferiorly to the pubic symphysis. Intravenous contrast was utilized. No oral contrast given which diminishes evaluation of bowel. Comparison: Previous CT abdomen and pelvis exam of 11/27/16. Findings: There are 5 separate fluid collections within the right and left sides of the abdomen and pelvis. On the left side largest fluid collection measures 14.2 cm. Fluid collection more inferiorly within the pelvis to the left of midline measures 8.1 cm in greatest dimension. Right sided fluid collection within the abdomen and pelvis measures 11.1 cm in size. Additional fluid collection within the pelvis measures 7.0 cm in size. Small fluid collection deep within the pelvis measuring 3.1 cm is seen. Findings are likely due to multifocal abscesses. Minimal atelectasis noted within the right lung base. Liver shows no focal parenchymal abnormality. Spleen appears within normal limits. Adrenal glands show no nodule. Gallbladder shows no calcified gallstones. Kidneys show no hydronephrosis or mass. Aorta shows no aneurysmal dilatation. Multiple mesenteric lymph nodes are seen felt to be reactive from the infectious process. No solid pelvic mass is seen. Bone window settings were reviewed which appear unremarkable. Impression: 1. Five separate fluid collections within the abdomen and pelvis on both right and left sides. Size of fluid collections as noted above. Findings most likely due to multiple abscesses. These abscesses do not connect. 2. Multiple mesenteric lymph nodes which are more prominent than on previous study which are likely reactive secondary to the infection. 3. Other incidental findings. Diagnostic code #5 [employer] called report to Dr. Andre Wu at 0940 on 12/03/2016
[2016-12-04] MEDS: cefOXitin 2 GM in Premix Bag 1 BAG IV SCH ×3 (00:40→11:07)
[2016-12-04] MEDS: Psyllium Husk Powder Sugar Free 3.4 GM Packet PO SCH (08:15)
[2016-12-04] MEDS: Acetaminophen/oxyCODONE 325-5 MG Tab PO PRN (08:15)
[2016-12-04] MEDS: Saccharomyces Boulardii (Probiotic) 250 MG Cap PO SCH (08:15)
[2016-12-04 08:20] VITALS: BP 131/76
--- NOTE | 2016-12-04 10:53 | PCM.SURGPN ---
- General Info Date of Service: 12/04/16 Functional Status: Reports: pain controlled, tolerating diet, ambulating, urinating - Review of Systems Gastrointestinal: Reports: No symptoms - Patient Data Vitals - most recent: Last Vital Signs Temp 36.6 C 12/04/16 07:35 Pulse 81 12/04/16 07:35 Resp 18 12/04/16 07:35 BP 131/76 12/04/16 07:35 Pulse Ox 95 12/04/16 07:35 Weight - most recent: 122.697 kg I&O - last 24 hours: Intake & Output 12/03/16 12/04/16 12/04/16 22:59 06:59 14:59 Intake Total 1175 950 0 Output Total 3100 1050 Balance -1925 -100 0 Med Orders - Current: Current Medications Hydromorphone HCl (Dilaudid) 0.5 mg IVPUSH Q1H PRN PRN Reason: Pain (severe 7-10) Last Admin: 11/27/16 18:24 Dose: 0.5 mg Cefoxitin Sodium 2 gm/ Premix 50 mls @ 100 mls/hr IV Q6H [facility] Last Admin: 12/04/16 06:55 Dose: 100 mls/hr Ondansetron HCl (Zofran) 4 mg IVPUSH Q6H PRN PRN Reason: Nausea/Vomiting Oxycodone/Acetaminophen (Percocet 325-5 Mg) 2 tab PO Q4H PRN PRN Reason: Pain (moderate 4-6) Last Admin: 12/04/16 08:15 Dose: 2 tab Psyllium Husk (Metamucil Sugar Free) 1 packet PO BID [facility] Last Admin: 12/04/16 08:15 Dose: 1 packet Saccharomyces Boulardii (Florastor) 250 mg PO BID [facility] Last Admin: 12/04/16 08:15 Dose: 250 mg Simethicone (Simethicone) 80 mg PO Q6H PRN PRN Reason: Gas Last Admin: 12/01/16 16:17 Dose: 80 mg Discontinued Medications Bupivacaine HCl/Epinephrine Bitart (Marcaine 0.5%/Epinephrine 1:200,000) Confirm Administered Dose 50 ml .ROUTE .STK-MED ONE Stop: 11/27/16 13:57 Last Admin: 11/27/16 14:48 Dose: 10 ml Diatrizoate Meglum/Diatrizoate Sod (Gastrografin 37%) 120 ml PO ONETIME ONE Stop: 11/27/16 11:56 Last Admin: 11/27/16 13:00 Dose: 90 ml Fentanyl (Sublimaze) Confirm Administered Dose 250 mcg .ROUTE .STK-MED ONE Stop: 11/27/16 14:16 Fentanyl (Sublimaze) Confirm Administered Dose 250 mcg .ROUTE .STK-MED ONE Stop: 11/27/16 15:19 Fentanyl (Sublimaze) 50 mcg IVPUSH Q5M PRN PRN Reason: PAIN Stop: 11/27/16 18:00 Hydromorphone HCl (Dilaudid) 0.5 mg IVPUSH ONETIME ONE Stop: 11/27/16 11:25 Last Admin: 11/27/16 14:25 Dose: Not Given Hydromorphone HCl (Dilaudid) 0.5 mg IVPUSH Q15M PRN PRN Reason: Pain Stop: 11/27/16 16:28 Last Admin: 11/27/16 17:00 Dose: 0.5 mg Dextrose/Sodium Chloride (Dextrose 5%-Normal Saline) 1,000 mls @ 999 mls/hr IV ASDIRECTED [facility] Last Admin: 11/27/16 11:41 Dose: 999 mls/hr Cefoxitin Sodium 2 gm/ Premix 50 mls @ 100 mls/hr IV ONETIME ONE Stop: 11/27/16 11:53 Last Admin: 11/27/16 13:00 Dose: 100 mls/hr Metronidazole 500 mg/ Premix 100 mls @ 100 mls/hr IV ONETIME ONE Stop: 11/27/16 14:49 Last Admin: 11/27/16 19:11 Dose: Not Given Lidocaine HCl (Xylocaine-Mpf 1%) Confirm Administered Dose 4 mls @ as directed .ROUTE .STK-MED ONE Stop: 11/27/16 14:16 Lactated Ringer's (Ringers, Lactated) Confirm Administered Dose 1,000 mls @ as directed .ROUTE .STK-MED ONE Stop: 11/27/16 15:23 Lactated Ringer's (Ringers, Lactated) Confirm Administered Dose 1,000 mls @ as directed .ROUTE .STK-MED ONE Stop: 11/27/16 16:02 Lactated Ringer's (Ringers, Lactated) 1,000 mls @ 125 mls/hr IV ASDIRECTED [facility] Last Admin: 11/29/16 12:01 Dose: 125 mls/hr Influenza Virus Vaccine (Fluzone/Fluarix Vaccine) 60 mcg IM .ONCE ONE Stop: 11/29/16 08:18 Last Admin: 11/30/16 09:34 Dose: Not Given Iopamidol (Isovue-300 (61%)) 150 ml IVPUSH ONETIME ONE Stop: 11/27/16 11:56 Last Admin: 11/27/16 13:00 Dose: 125 ml Iopamidol (Isovue-300 (61%)) 150 ml IVPUSH ONETIME ONE Stop: 12/03/16 07:52 Last Admin: 12/03/16 08:06 Dose: 125 ml Lidocaine/Epinephrine (Xylocaine 1% With Epinephrine 1:100,000) Confirm Administered Dose 20 ml .ROUTE .STK-MED ONE Stop: 11/27/16 13:57 Last Admin: 11/27/16 14:48 Dose: 10 ml Metoclopramide HCl (Reglan) 10 mg IVPUSH ONETIME ONE Stop: 11/27/16 11:25 Last Admin: 11/27/16 14:25 Dose: Not Given Midazolam HCl (Versed 1 Mg/Ml) Confirm Administered Dose 2 mg .ROUTE .STK-MED ONE Stop: 11/27/16 14:15 Ondansetron HCl (Zofran) Confirm Administered Dose 4 mg .ROUTE .STK-MED ONE Stop: 11/27/16 14:15 Propofol (Diprivan 20 Ml) Confirm Administered Dose 200 mg .ROUTE .STK-MED ONE Stop: 11/27/16 14:15 Rocuronium [place] (Zemuron) Confirm Administered Dose 50 mg .ROUTE .STK-MED ONE Stop: 11/27/16 14:15 Sodium Chloride (Saline Flush) 10 ml FLUSH ONETIME PRN PRN Reason: IV FLUSH Last Admin: 11/27/16 13:00 Dose: 10 ml Sodium Chloride (Saline Flush) 10 ml FLUSH ONETIME ONE Stop: 12/03/16 07:52 Last Admin: 12/03/16 08:06 Dose: 10 ml - Exam Abdomen: soft, no tenderness, no distension - Problem List & Annotations (1) Appendicitis SNOMED Code(s): 28198978 Code(s): K37 - UNSPECIFIED APPENDICITIS Status: Resolved Priority: High Current Visit: Yes Qualifiers: Appendicitis type: acute appendicitis Acute appendicitis type: other Qualified Code(s): K35.89 - Other acute appendicitis (2) Gangrenous appendicitis SNOMED Code(s): 00408971 Code(s): K35.80 - UNSPECIFIED ACUTE APPENDICITIS Status: Acute Current Visit: Yes (3) Intra-abdominal abscess post-procedure SNOMED Code(s): 6302678 Code(s): T81.4XXA - INFECTION FOLLOWING A PROCEDURE, INITIAL ENCOUNTER; K65.1 - PERITONEAL ABSCESS Status: Chronic Priority: High Current Visit: Yes - Problem List Review Problem List Initiated/Reviewed/Updated: Yes - My Orders Last 24 Hours: Active Orders 24 hr Category Date Time Status Ready for Discharge [RC] PER UNIT ROUTINE Care 12/04/16 10:51 Ordered Medication Orders Hydromorphone HCl (Dilaudid) 0.5 mg IVPUSH Q1H PRN PRN Reason: Pain (severe 7-10) Last Admin: 11/27/16 18:24 Dose: 0.5 mg Cefoxitin Sodium 2 gm/ Premix 50 mls @ 100 mls/hr IV Q6H [facility] Last Admin: 12/04/16 06:55 Dose: 100 mls/hr Infusion: 12/04/16 01:10 Dose: 100 mls/hr Admin: 12/04/16 00:40 Dose: 100 mls/hr Infusion: 12/03/16 19:28 Dose: 100 mls/hr Admin: 12/03/16 18:58 Dose: 100 mls/hr Infusion: 12/03/16 13:24 Dose: 100 mls/hr Admin: 12/03/16 12:54 Dose: 100 mls/hr Infusion: 12/03/16 07:16 Dose: 100 mls/hr Admin: 12/03/16 06:46 Dose: 100 mls/hr Infusion: 12/03/16 02:24 Dose: 100 mls/hr Admin: 12/03/16 01:54 Dose: 100 mls/hr Infusion: 12/02/16 19:18 Dose: 100 mls/hr Admin: 12/02/16 18:48 Dose: 100 mls/hr Infusion: 12/02/16 12:18 Dose: 100 mls/hr Admin: 12/02/16 11:48 Dose: 100 mls/hr Infusion: 12/02/16 05:57 Dose: 100 mls/hr Admin: 12/02/16 05:27 Dose: 100 mls/hr Infusion: 12/02/16 01:40 Dose: 100 mls/hr Admin: 12/02/16 01:10 Dose: 100 mls/hr Infusion: 12/01/16 18:32 Dose: 100 mls/hr Admin: 12/01/16 18:02 Dose: 100 mls/hr Infusion: 12/01/16 12:06 Dose: 100 mls/hr Admin: 12/01/16 11:36 Dose: 100 mls/hr Infusion: 12/01/16 06:59 Dose: 100 mls/hr Admin: 12/01/16 06:29 Dose: 100 mls/hr Infusion: 12/01/16 00:36 Dose: 100 mls/hr Admin: 12/01/16 00:06 Dose: 100 mls/hr Infusion: 11/30/16 19:02 Dose: 100 mls/hr Admin: 11/30/16 18:32 Dose: 100 mls/hr Infusion: 11/30/16 13:56 Dose: 100 mls/hr Admin: 11/30/16 13:26 Dose: 100 mls/hr Infusion: 11/30/16 06:00 Dose: 100 mls/hr Admin: 11/30/16 05:30 Dose: 100 mls/hr Infusion: 11/30/16 01:22 Dose: 100 mls/hr Admin: 11/30/16 00:52 Dose: 100 mls/hr Infusion: 11/29/16 17:38 Dose: 100 mls/hr Admin: 11/29/16 17:08 Dose: 100 mls/hr Infusion: 11/29/16 12:27 Dose: 100 mls/hr Admin: 11/29/16 11:57 Dose: 100 mls/hr Infusion: 11/29/16 06:28 Dose: 100 mls/hr Admin: 11/29/16 05:58 Dose: 100 mls/hr Infusion: 11/29/16 00:10 Dose: 100 mls/hr Admin: 11/28/16 23:40 Dose: 100 mls/hr Infusion: 11/28/16 17:48 Dose: 100 mls/hr Admin: 11/28/16 17:18 Dose: 100 mls/hr Infusion: 11/28/16 12:24 Dose: 100 mls/hr Admin: 11/28/16 11:54 Dose: 100 mls/hr Infusion: 11/28/16 06:26 Dose: 100 mls/hr Admin: 11/28/16 05:56 Dose: 100 mls/hr Infusion: 11/28/16 00:52 Dose: 100 mls/hr Admin: 11/28/16 00:22 Dose: 100 mls/hr Infusion: 11/27/16 18:52 Dose: 100 mls/hr Admin: 11/27/16 18:22 Dose: 100 mls/hr Ondansetron HCl (Zofran) 4 mg IVPUSH Q6H PRN PRN Reason: Nausea/Vomiting Oxycodone/Acetaminophen (Percocet 325-5 Mg) 2 tab PO Q4H PRN PRN Reason: Pain (moderate 4-6) Last Admin: 12/04/16 08:15 Dose: 2 tab Admin: 12/03/16 08:22 Dose: 2 tab Admin: 12/02/16 18:48 Dose: 2 tab Admin: 12/02/16 09:03 Dose: 2 tab Admin: 12/01/16 18:02 Dose: 2 tab Admin: 12/01/16 08:48 Dose: 2 tab Admin: 11/30/16 16:40 Dose: 2 tab Admin: 11/30/16 09:06 Dose: 2 tab Admin: 11/29/16 20:04 Dose: 2 tab Admin: 11/28/16 15:37 Dose: 2 tab Admin: 11/28/16 06:07 Dose: 2 tab Admin: 11/27/16 20:05 Dose: 2 tab Psyllium Husk (Metamucil Sugar Free) 1 packet PO BID [facility] Last Admin: 12/04/16 08:15 Dose: 1 packet Admin: 12/03/16 21:49 Dose: 1 packet Admin: 12/03/16 08:35 Dose: 1 packet Admin: 12/02/16 21:09 Dose: 1 packet Admin: 12/02/16 08:55 Dose: 1 packet Saccharomyces Boulardii (Florastor) 250 mg PO BID [facility] Last Admin: 12/04/16 08:15 Dose: 250 mg Admin: 12/03/16 21:49 Dose: 250 mg Admin: 12/03/16 08:35 Dose: 250 mg Admin: 12/02/16 21:09 Dose: 250 mg Admin: 12/02/16 08:55 Dose: 250 mg Admin: 12/01/16 21:24 Dose: 250 mg Admin: 12/01/16 10:26 Dose: 250 mg Simethicone (Simethicone) 80 mg PO Q6H PRN PRN Reason: Gas Last Admin: 12/01/16 16:17 Dose: 80 mg Admin: 11/30/16 16:40 Dose: 80 mg Admin: 11/30/16 09:06 Dose: 80 mg Admin: 11/29/16 15:52 Dose: 80 mg - Assessment Assessment (Free Text/Narrative):: ready for discharge - Plan Plan (Free Text/Narrative):: discharge today with followup. Interventional radiology as an outpatient for drainage procedures
--- NOTE | 2016-12-06 11:40 | PCM.DCSUM1 ---
Discharge Summary - Hospital Course Free Text/Narrative:: The patient underwent an uncomplicated laparoscopic appendectomy. He was placed on the floor for the planned 7 day IV antibiotic course. He had loose stools in the early phase of the recovery period, but his appetite returned quickly. He had incisional discomfort, and a few areas of abdominal pain. He demonstrated progressive ambulatory skills, walking far and frequently. He was out of bed most of the day while he was getting his antibiotics. His incisions were fine. His stools began to firm up with time. A white count was performed about 5 days into his course, and was still elevated. I was concerned about the possibility of abscess formation given his history of local rupture, with fecal contamination. A CT scan was performed and revealed multiple fluid collections, which were noncommunicating. Clinically, he was doing very well. Because of this I scheduled him to followup with interventional radiology in [facility] for IR drainage. Once he has been drained and the pigtail catheters are in place, I will see him in my office for post drainage management. - Discharge Data Discharge Date: 12/04/16 Discharge Disposition: Home, Self-Care 01 Condition: Good - Discharge Diagnosis/Problem(s) (1) Appendicitis SNOMED Code(s): 74075070 ICD Code: K37 - UNSPECIFIED APPENDICITIS Status: Resolved Priority: High Qualifiers: Appendicitis type: acute appendicitis Acute appendicitis type: other Qualified Code(s): K35.89 - Other acute appendicitis (2) Gangrenous appendicitis SNOMED Code(s): 75044452 ICD Code: K35.80 - UNSPECIFIED ACUTE APPENDICITIS Status: Acute (3) Intra-abdominal abscess post-procedure SNOMED Code(s): 2441483 ICD Code: T81.4XXA - INFECTION FOLLOWING A PROCEDURE, INITIAL ENCOUNTER; K65.1 - PERITONEAL ABSCESS Status: Chronic Priority: High - Patient Summary/Data Operative Procedure(s) Performed: laparoscopic appendectomy Consults: Consultations 11/28/16 07:41 Consult to Physical Therapy [PT Evaluation and Treatment] [CONS] Routine - Patient Instructions Diet: Usual Diet as Tolerated Activity: As Tolerated Driving: May Drive Today Showering/Bathing: May Shower Wound/Incision Care: Keep Operative Site/Wound Site Clean and Dry Notify Provider of: Fever, Increased Pain - Discharge Plan Prescriptions/Med Rec: Sulfamethoxazole/Trimethoprim [Bactrim Ds Tablet] 1 each PO BID #14 tablet metroNIDAZOLE [Flagyl] 500 mg PO Q12H #14 tablet oxyCODONE HCl/Acetaminophen [Percocet 5-325 mg Tablet] 1 - 2 each PO Q6HR PRN # 36 tablet PRN Reason: Pain (Moderate 4-6) Home Medications: Home Meds Sulfamethoxazole/Trimethoprim [Bactrim Ds Tablet] 1 each PO BID #14 tablet 12/04 [Rx] metroNIDAZOLE [Flagyl] 500 mg PO Q12H #14 tablet 12/04/16 [Rx] oxyCODONE HCl/Acetaminophen [Percocet 5-325 mg Tablet] 1 - 2 each PO Q6HR PRN # 36 tablet 12/04/16 [Rx] Patient Handouts: Laparoscopic Appendectomy, Adult, Care After, Wound Infection , [id number] Forms: ED Department Discharge Referrals: Andre Wu MD [Physician] - (Please call and followup with MD Wu after appointment with Dr. Graf in [place]. ) - Patient Data Vitals - Most Recent: Last Vital Signs Temp 36.6 C 12/04/16 07:35 Pulse 81 12/04/16 07:35 Resp 18 12/04/16 07:35 BP 131/76 12/04/16 07:35 Pulse Ox 95 12/04/16 07:35 Weight - Most Recent: 122.697 kg Med Orders - Current: Current Medications Discontinued Medications Bupivacaine HCl/Epinephrine Bitart (Marcaine 0.5%/Epinephrine 1:200,000) Confirm Administered Dose 50 ml .ROUTE .STK-MED ONE Stop: 11/27/16 13:57 Last Admin: 11/27/16 14:48 Dose: 10 ml Diatrizoate Meglum/Diatrizoate Sod (Gastrografin 37%) 120 ml PO ONETIME ONE Stop: 11/27/16 11:56 Last Admin: 11/27/16 13:00 Dose: 90 ml Fentanyl (Sublimaze) Confirm Administered Dose 250 mcg .ROUTE .STK-MED ONE Stop: 11/27/16 14:16 Fentanyl (Sublimaze) Confirm Administered Dose 250 mcg .ROUTE .STK-MED ONE Stop: 11/27/16 15:19 Fentanyl (Sublimaze) 50 mcg IVPUSH Q5M PRN PRN Reason: PAIN Stop: 11/27/16 18:00 Hydromorphone HCl (Dilaudid) 0.5 mg IVPUSH ONETIME ONE Stop: 11/27/16 11:25 Last Admin: 11/27/16 14:25 Dose: Not Given Hydromorphone HCl (Dilaudid) 0.5 mg IVPUSH Q1H PRN PRN Reason: Pain (severe 7-10) Last Admin: 11/27/16 18:24 Dose: 0.5 mg Hydromorphone HCl (Dilaudid) 0.5 mg IVPUSH Q15M PRN PRN Reason: Pain Stop: 11/27/16 16:28 Last Admin: 11/27/16 17:00 Dose: 0.5 mg Dextrose/Sodium Chloride (Dextrose 5%-Normal Saline) 1,000 mls @ 999 mls[facility] Last Admin: 11/27/16 11:41 Dose: 999 mls/hr Cefoxitin Sodium 2 gm/ Premix 50 mls @ 100 mls/hr IV ONETIME ONE Stop: 11/27/16 11:53 Last Admin: 11/27/16 13:00 Dose: 100 mls/hr Metronidazole 500 mg/ Premix 100 mls @ 100 mls/hr IV ONETIME ONE Stop: 11/27/16 14:49 Last Admin: 11/27/16 19:11 Dose: Not Given Lidocaine HCl (Xylocaine-Mpf 1%) Confirm Administered Dose 4 mls @ as directed .ROUTE .STK-MED ONE Stop: 11/27/16 14:16 Lactated Ringer's (Ringers, Lactated) Confirm Administered Dose 1,000 mls @ as directed .ROUTE .STK-MED ONE Stop: 11/27/16 15:23 Lactated Ringer's (Ringers, Lactated) Confirm Administered Dose 1,000 mls @ as directed .ROUTE .STK-MED ONE Stop: 11/27/16 16:02 Lactated Ringer's (Ringers, Lactated) 1,000 mls @ 125 mls/hr IV ASDIRECTED [facility] Last Admin: 11/29/16 12:01 Dose: 125 mls/hr Cefoxitin Sodium 2 gm/ Premix 50 mls @ 100 mls/hr IV Q6H [facility] Last Admin: 12/04/16 11:07 Dose: 100 mls/hr Influenza Virus Vaccine (Fluzone/Fluarix Vaccine) 60 mcg IM .ONCE ONE Stop: 11/29/16 08:18 Last Admin: 11/30/16 09:34 Dose: Not Given Iopamidol (Isovue-300 (61%)) 150 ml IVPUSH ONETIME ONE Stop: 11/27/16 11:56 Last Admin: 11/27/16 13:00 Dose: 125 ml Iopamidol (Isovue-300 (61%)) 150 ml IVPUSH ONETIME ONE Stop: 12/03/16 07:52 Last Admin: 12/03/16 08:06 Dose: 125 ml Lidocaine/Epinephrine (Xylocaine 1% With Epinephrine 1:100,000) Confirm Administered Dose 20 ml .ROUTE .STK-MED ONE Stop: 11/27/16 13:57 Last Admin: 11/27/16 14:48 Dose: 10 ml Metoclopramide HCl (Reglan) 10 mg IVPUSH ONETIME ONE Stop: 11/27/16 11:25 Last Admin: 11/27/16 14:25 Dose: Not Given Midazolam HCl (Versed 1 Mg/Ml) Confirm Administered Dose 2 mg .ROUTE .STK-MED ONE Stop: 11/27/16 14:15 Ondansetron HCl (Zofran) Confirm Administered Dose 4 mg .ROUTE .STK-MED ONE Stop: 11/27/16 14:15 Ondansetron HCl (Zofran) 4 mg IVPUSH Q6H PRN PRN Reason: Nausea/Vomiting Oxycodone/Acetaminophen (Percocet 325-5 Mg) 2 tab PO Q4H PRN PRN Reason: Pain (moderate 4-6) Last Admin: 12/04/16 08:15 Dose: 2 tab Propofol (Diprivan 20 Ml) Confirm Administered Dose 200 mg .ROUTE .STK-MED ONE Stop: 11/27/16 14:15 Psyllium Husk (Metamucil Sugar Free) 1 packet PO BID [facility] Last Admin: 12/04/16 08:15 Dose: 1 packet Rocuronium [place] (Zemuron) Confirm Administered Dose 50 mg .ROUTE .STK-MED ONE Stop: 11/27/16 14:15 Saccharomyces Boulardii (Florastor) 250 mg PO BID [facility] Last Admin: 12/04/16 08:15 Dose: 250 mg Simethicone (Simethicone) 80 mg PO Q6H PRN PRN Reason: Gas Last Admin: 12/01/16 16:17 Dose: 80 mg Sodium Chloride (Saline Flush) 10 ml FLUSH ONETIME PRN PRN Reason: IV FLUSH Last Admin: 11/27/16 13:00 Dose: 10 ml Sodium Chloride (Saline Flush) 10 ml FLUSH ONETIME ONE Stop: 12/03/16 07:52 Last Admin: 12/03/16 08:06 Dose: 10 ml *Q Meaningful Use (DIS) - VTE *Q VTE Criteria *Q: - Stroke *Q Stroke Criteria *Q: - AMI *Q AMI Criteria *Q:
== END 2016-12-04 12:25 | disposition home or self-care (01) | DRG 225 ==
LOC: JD.ED 10:40 → JD.SDS 13:47 → JD.MS 15:55
PROVIDERS: ADMIT Surgery; ATTEND Surgery
PROC: 0DTJ4ZZ Resection of Appendix, Percutaneous Endoscopic Approach (ICD-10-PCS; principal; 2016-11-27)
DX: K35.2 Acute appendicitis with generalized peritonitis (principal); T81.4XXA Infection following a procedure, initial encounter; K65.1 Peritoneal abscess
CPT/HCPCS: 00840; 36415; 74177; 74177-26; 81001; 85025; 94761; 96361; 96365; 97161-GP; 99285; 99285-25; A9270-GY; J0694; J1170; J2250; J2405; J2704; J3010; J7042; J7050; J7120; Q9963; Q9967